=== PATIENT | female | born 1985 | race Caucasian/White ===

== ENCOUNTER 2022-01-26 21:10 | Emergency (ER) | payer BC, MEDICAID, SELFPAY ==
[2022-01-26 21:21] VITALS: BP 135/73; PULSE 74; RESP 18; TEMP 36.6; O2SAT 99; BMI 45.7
[2022-01-26 21:28] VITALS: BP 135/89; PULSE 67; RESP 18; O2SAT 99
--- NOTE | 2022-01-26 21:36 | CRLHL7_ITS ---
For Patients: As a result of the Cures Act, medical imaging exams and procedure reports are released immediately into your electronic medical record. You may view this report before your referring provider. If you have questions, please contact your health care provider. INDICATION: Chest pain. TECHNIQUE: Chest 1 views. COMPARISON: None. FINDINGS: Cardiovascular and mediastinum: Cardiomediastinal silhouette is within normal limits. Lungs and pleural spaces: Lungs are clear. No sign of pleural effusion. No pneumothorax. Bones and soft tissues: No significant findings. IMPRESSION: No acute cardiopulmonary process identified. Dictated by Kamryn Franco MD @ 01/26/2022 10:41:34 PM (Electronically Signed)
[2022-01-26] MEDS: GI COCKTAIL (VISC LIDO/ANTACID) 30 ML PO (21:42)
--- NOTE | 2022-01-26 21:46 | ED_ITS ---
HPI - General Adult General Date Seen: 01/26/22 Chief complaint: Chest Pain Stated complaint: chest pain Time Seen by Provider: 01/26/22 21:24 Source: patient Mode of arrival: ambulatory Limitations: no limitations History of Present Illness HPI narrative: Patient is a 36-year-old female who comes in with pain on the left side of her chest. 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 She does acknowledge this is an anxiety provoking event for her as she has autistic sons. She has never had any exertional chest pain. She does have a history of acid reflux but does not take medication regularly for this. The pain began she was convinced that it was acid related but it did not resolve by taking water like it normally would. The pain seemed to radiate into her back into her left shoulder which made her concerned that could be heart related. There is no family history of premature coronary disease. There is hypertension in her family but she has never been told she has high blood pressure. She has never been told she has high cholesterol. There was no associated diaphoresis or dyspnea. She does not take any medications regularly. Related Data Home Medications Medication Instructions Recorded Confirmed No Known Home Medications 01/26/22 01/26/22 Allergies Allergy/AdvReac Type Severity Reaction Status Date / Time No Known Drug Allergies Allergy Verified 01/26/22 21:25 Review of Systems Status of ROS: Reports: 10 or more systems reviewed and unremarkable except as noted in History and below [facility] Medical History (Updated 01/26/22 @ 22:41 by Koko Mann MD) 6th nerve palsy Acute vaginitis Bipolar disorder, current episode depressed, mild KRISTEN I (cervical intraepithelial neoplasia I) Depressive disorder Dyslexia Generalized anxiety disorder Morbid obesity Pain in left knee Tension-type headache, unspecified, intractable UTI (urinary tract infection) Surgical History (Updated 01/26/22 @ 21:37 by Vishal Rollins RN) H/O laparoscopy History of tympanostomy History of wisdom tooth extraction Hx of breast reduction, elective Social History Smoking Status: Former smoker Do you use any of these nicotine containing products: None Second hand tobacco smoke exposure: No How often do you have a drink containing alcohol: 2-4 times a month How many standard drinks containing alcohol do you have on a typical day: 1 or 2 How often do you have six or more drinks on one occasion: Never AUDIT-C Alcohol total score: 2 Non-prescribed substance use: denies use service: No Exam Narrative: Exam Narrative: Vitals noted. HEENT: Conjunctiva clear. Tympanic membranes are pearly white bilaterally. Posterior pharynx is clear without erythema or exudate. Neck is supple without adenopathy, thyromegaly, carotid bruit. Lungs: Clear to auscultation in all patel. No wheezes, rales, rhonchi. Heart: Regular rate and rhythm without murmur. Abdomen: Soft and nontender. No guarding, rigidity, rebound. Bowel sounds are normal. No palpable masses. Extremities: No cyanosis or edema. Good distal pulses. Skin: No abnormalities noted of the exposed skin. Neurologic: Awake, alert, fully oriented. Neurologic exam is nonfocal. Const: Vital Signs, click to edit/add: Vital Signs - 24 hr 01/26/22 21:21 01/26/22 21:28 01/26/22 22:00 Temperature 97.9 F Pulse Rate [Right Pulse Oximeter] 74 67 75 Respiratory Rate 18 18 19 Blood Pressure [Ri ght Upper Arm] 135/73 135/89 111/68 Pulse Oximetry 99 99 97 Oxygen Delivery Me thod Room Air Room Air Room Air Course Course Hospital Course: Patient seen and examined. EKG shows normal sinus rhythm with a rate of 70. No acute ST or T-wave changes are noted. Chest x-ray and labs are ordered. Patient is given a GI cocktail. Reevaluation(s) Reevaluation #1: Her symptoms improved significantly with a GI cocktail. Her chest x-ray and lab work was all unremarkable. She is reassured. Vital Signs Vital signs: Initial Vital Signs Temperature 97.9 F 01/26/22 21:21 Temperature Source Temporal Artery Scan 01/26/22 21:21 Pulse Rate 74 01/26/22 21:21 Pulse Rhythm 01/26/22 21:21 Respiratory Rate 18 01/26/22 21:21 Blood Pressure 135/73 01/26/22 21:21 Blood Pressure Mean 93 01/26/22 21:21 Blood Pressure Position Sitting 01/26/22 21:21 Pulse Oximetry 99 01/26/22 21:21 Oxygen Delivery Method 01/26/22 21:21 Vital Signs Temperature 97.9 F 01/26/22 21:21 Pulse Rate 74 01/26/22 21:21 Respiratory Rate 18 01/26/22 21:21 Blood Pressure 135/73 01/26/22 21:21 Pulse Oximetry 99 01/26/22 21:21 Oxygen Delivery Method 01/26/22 21:21 Temperature 97.9 F 01/26/22 21:21 Pulse Rate 75 01/26/22 22:00 Respiratory Rate 19 01/26/22 22:00 Blood Pressure 111/68 01/26/22 22:00 Pulse Oximetry 97 01/26/22 22:00 Oxygen Delivery Method 01/26/22 22:00 Medical Decision Making Lab Data Labs: Lab Results 01/26/22 01/26/22 Range/Units 21:51 21:51 D-Dimer Quant (PE/DVT) 0.27 (0.00-0.50) ug/ml Sodium 135 (135-149) mmol/L Potassium 3.9 (3.6-5.1) mmol/L Chloride 101 (96-114) mmol/L Carbon Dioxide 27 (20-32) mmol/L BUN 12 (5-24) mg/dL Creatinine 0.6 (0.5-1.5) mg/dL Estimated Creat Clear 104.49 Estimated GFR 121 ml/min Glucose 144 H (60-115) mg/dL Calcium 9.1 (8.4-10.6) mg/dL Troponin I < 0.01 L (0.01-0.04) ng/mL Lipase 146 (23-300) U/L Discharge Plan Discharge Clinical Impression: Chest pain due to GERD Patient Disposition: Home, Self-Care Condition: Improved Additional Instructions: Use Tylenol for pain. Use OTC omeprazole or Pepcid for acid reflux. If pain persists please follow-up with your PCP. Your labs, chest x-ray, EKG were all normal. Prescriptions: No Action No Known Home Medications Stand Alone Forms: [employer] Info Instructions
--- OUTSIDE RECORDS SUMMARY | 2022-01-26 21:54 | XMS_ITS | Clinical Summary ---
:1985 Author Organization [facility] Address [address] [place] [id number] Care Team Providers Name Role Phone Sofiya Higgins MD Primary Care Provider Lou Hare MD Unavailable Jean Meade MD Unavailable Allergies No known active allergies Medications Medication Sig Dispensed Refills Start Date End Date Status acetaminophen Take 650 mg by 0 A ctive (TYLENOL) 325 MG mouth tablet levonorgestrel 1 Device by 0 12/24/2015 Ac tive (MIRENA) 20 MCG/24HR Intrauterine route IUD Active Problems No known active problems Social History Tobacco Use Types Packs/Day Years Used Date Smoking Tobacco: Former Smokeless Tobacco: Never Sex Assigned at Date Recorded Not on file Last Filed Vital Signs Vital Sign Reading Time Taken Comments Blood Pressure 108/61 06/03/2019 5:45 PM [facility] Pulse 63 06/03/2019 5:00 PM [facility] Temperature 36.9 ??C (98.4 ??F) 06/03/2019 2:48 PM [facility] Respiratory Rate 16 06/03/2019 2:48 PM [facility] Oxygen Saturation 99% 06/03/2019 6:00 PM [facility] Inhaled Oxygen Concentration - - Weight - - Height - - Body Mass Index - - Plan of Treatment Health Maintenance Due Date Last Done Comments ADVANCE CARE PLANNING 1985 ANNUAL REVIEW OF HM ORDERS 1985 YEARLY PREVENTIVE VISIT 1985 COVID-19 Vaccine (#1) 03/06/1988 DTAP/TDAP/TD IMMUNIZATION 08/18/1999 08/17/1999, 12/22/1993 (3 - Tdap) HIV SCREENING 09/03/2002 HEPATITIS C SCREENING 09/03/2005 PAP 09/03/2008 PHQ-2 (once per calendar 04/11/2021 year) INFLUENZA VACCINE (#1) 2021 04/12/2019, 12/24/2017, 01/03/2016, Additional history exists HEPATITIS B IMMUNIZATION Completed 02/11/1996, 04/18/1995, 10/20/1994 IPV IMMUNIZATION Aged Out No longer eligi ble based on patient 's age to complete this topic MENINGITIS IMMUNIZATION Aged Out No longe r eligible based on patient 's age to complete this topic Pneumococcal Vaccine: Aged Out No longer eligible Pediatrics (0 to 5 Years) based on patient's age and At-Risk Patients (6 to to co mplete this topic 64 Years) Care Teams Claims Adjudicator Relationship Specialty Start Date End Date Sofiya Higgins MD PCP - General Family Practice 05/29/19 [facility] [address] [place], [place] [id number] Lou Hare MD Referring Physician Osteopathy 06/11/19 [facility] [address] [place], [place] [id number] Jean Meade MD MD Ophthalmology 06/11/19
--- OUTSIDE RECORDS SUMMARY | 2022-01-26 21:55 | XMS_ITS | Encounter Summary ---
:1985 Author Organization [place] Address [address] [place] [address] Care Team Providers Name Role Phone Sofiya Higgins MD Primary Care Provider Reason for Visit Reason Comments Headache Encounter Details Date Type Department Care Team Description 05/29/2019 Emergency [facility] Rocky Cavazos, Tension headache Emergency Dept [address] [facility] [place], [place] [address] [place] [address] [place] [address] [phone] (Wo rk) Social History Tobacco Use Types Packs/Day Years Used Date Smoking Tobacco: Never Assessed Sex Assigned at Date Recorded Not on file documented as of this encounter Last Filed Vital Signs Vital Sign Reading Time Taken Comments Blood Pressure 125/65 05/29/2019 8:05 PM AIR CARGO SPECIALIST Pulse 63 05/29/2019 8:05 PM AIR CARGO SPECIALIST Temperature 36.5 ??C (97.7 ??F) 05/29/2019 5:59 PM AIR CARGO SPECIALIST Respiratory Rate 16 05/29/2019 9:14 PM AIR CARGO SPECIALIST Oxygen Saturation 98% 05/29/2019 8:05 PM AIR CARGO SPECIALIST Inhaled Oxygen Concentration - - Weight - - Height - - Body Mass Index - - documented in this encounter Discharge Instructions Discharge InstructionsRocky Cavazos MD - 05/29/2019 9:03 PM AIR CARGO SPECIALIST Discharge Instructions Headache You were seen today for a headache. Headaches may be caused by many different things such as muscle tension, sinus inflammation, anxiety and stress, having too little sleep, too much alcohol, some medical conditions or injury. You may have a migraine, which is caused by changes in the blood vessels inyour head. At this time your provider does not find that your headache is a sign of anything dangerous or life-threatening. However, sometimes the signs of serious illness do not show up right away. Generally, every Emergency Department visit should have a follow-up clinic visit with either a primary or a specialty clinic/provider. Please follow-up as instructed by your emergency provider today. Return to the Emergency Department if: You get a new fever of 100.4??F or higher. Your headache gets much worse. You get a stiff neck with your headache. You get a new headache that is significantly different or worse than headaches you have had before. You are vomiting (throwing up) and cannot keep food or water down. You have blurry or double vision or other problems with your eyes. You have a new weakness on one side of your body. You have difficulty with balance which is new. You or your family thinks you are confused. You have a seizure. What can I do to help myself? Pain medications - You may take a pain medication such as Tylenol?? (acetaminophen), Advil??, Motrin?? (ibuprofen) or Aleve?? (naproxen). Take a pain reliever as soon as you notice symptoms. Starting medications as soon as you start to have symptoms may lessen the amount of pain you have. Relaxing in a quiet, dark room may help. Get enough sleep and eat meals regularly. You may need to watch for certain foods or other things which may trigger your headaches. Keeping a journal of your headaches and possible triggers may help you and your primary provider to identify things which you should avoid which may be causing your headaches. If you were given a prescription for medicine here today, be sure to read all of the information (including the package insert) that comes with your prescription. This will include important information about the medicine, its side effects, and any warnings that you need to know about. The pharmacist who fills the prescription can provide more information and answer questions you may have about the medicine. If you have questions or concerns that the pharmacist cannot address, please call or return to the Emergency Department. Remember that you can always come back to the Emergency Department if you are not able to see your regular provider in the amount of time listed above, if you get any new symptoms, or if there is anything that worries you. CARGO SPECIALIST documented in this encounter Medications at Time of Discharge Medication Sig Dispensed Refills Start Date End Date levonorgestrel (MIRENA) 1 Device by 0 12/24/2015 20 MCG/24HR IUD Intrauterine route cyclobenzaprine 10 MG PO Take 1 tablet (10 mg) 20 tablet 0 05/29/2019 06/13/2019 tablet by mouth 3 times daily as needed for muscle spasms documented as of this encounter ED Notes Mamta Rust RN - 05/29/2019 6:00 PM CST Pt states, Yestersday at work I started having a really bad headache that was in the back of my head, and I slept okay last night after taking some melatonin and now today im super sensitive to lightsand the pain is getting so throbbing and hurting and now I am nauseated. VSS and ABC's intact. CARGO SPECIALIST Rocky Cavazos MD - 05/29/2019 5:54 PM CST History Chief Complaint: Headache HPI Nell Mcdonnell is a 33 year old female with a history of anxiety and diagnosis of PTSD who presents to the emergency department for evaluation of headache. The patient reports that yesterday morningshe woke up with a posterior headache that radiates to the sides of her head. She was able to go to work, but left early. She reports trouble driving home due to bright lights and loud noises. She was able to sleep last night, but woke up with the headache and neck pain today. Her neck pain is improved by massaging the area. She also reports some nausea, anxiety and a tingling sensation in her thighs. The patient last took 2 tablets of Advil at 1530 today. The patient denies any vomiting or changes in appetite. She also denies any history of migraines or frequent headaches. She has not seen a chiropractor recently. Allergies: No Known Drug Allergies Medications: Mirena Past Medical History: Cervical intraepithelial neoplasia Depression Bipolar Anxiety PTSD Past Surgical History: Tympanostomy [place] teeth extraction Abdomen laparoscopy diagnostic Breast reduction Family History: No past pertinent family history. Social History: The patient was accompanied to the ED by her . Smoking Status: Former Smokeless Tobacco: Never Alcohol Use: Not currently Drug Use: Not on file Review of Systems Constitutional: Negative for appetite change. Eyes: Positive for photophobia. Gastrointestinal: Positive for nausea. Negative for vomiting. Musculoskeletal: Positive for neck pain. Neurological: Positive for headaches. All other systems reviewed and are negative. Physical Exam Vitals: Patient Vitals for the past 24 hrs: BP Temp Temp src Pulse Heart Rate Resp SpO2 05/29/192004 125/65 -- -- 63 -- 18 98 % 05/29/19 1800 (!) 158/79 -- -- 74 -- -- 98 % 05/29/19 1759 (!) 158/79 97.7 ??F (36.5 ??C) Oral -- 70 16 96 % Physical Exam Nursing note and vitals reviewed. Constitutional: Cooperative. HENT: Mouth/Throat: Moist mucous membranes. Eyes: EOMI, nonicteric sclera Cardiovascular: Normal rate, regular rhythm, no murmurs, rubs, or gallops Pulmonary/Chest: Effort normal and breath sounds normal. No respiratory distress. No wheezes. No rales. Abdominal: Soft. Nontender, nondistended, no guarding or rigidity. BS present. Musculoskeletal: Normal range of motion. Bilateral paracervical muscle tenderness. Neurological: Alert. Moves all extremities spontaneously. Skin: Skin is warm and dry. No rash noted. Psychiatric: Normal mood and affect. Emergency Department Course Imaging: Radiographic findings were communicated with the patient who voiced understanding of the findings. CT Head WO Contrast 1. No acute intracranial process. 2. Mild to moderate opacification paranasal sinuses including sphenoid sinus may be on an inflammatory basis. Imaging independently reviewed and agree with radiologist interpretation. CTA Head Neck W Contrast HEAD CTA: 1. Nothing for thrombolic occlusion or high-grade stenosis intracranially. Nothing for dissection orhigh flow vascular malformation. NECK CTA: 1. No hemodynamically significant stenosis in the neck or evidence for dissection. Please see above for details. Imaging independently reviewed and agree with radiologist interpretation. Laboratory: HCG Qualitative Blood: Negative Interventions: 1919 Valium 5 mg IV 1919 Toradol 15 mg IV Emergency Department Course: Past medical records, nursing notes, and vitals reviewed. 1849 I performed an exam of the patient as documented above. IV was inserted and blood was drawn for laboratory testing, results above. The patient was sent for a head CT and head/neck CTA while in the emergency department, results above. 2057 I rechecked the patient and discussed the results of her workup thus far. Findings and plan explained to the Patient. Patient discharged home with instructions regarding supportive care, medications, and reasons to return. The importance of close follow-up was reviewed. The patient was prescribed cyclobenzaprine. I personally reviewed the laboratory results with the Patient and answered all related questions prior to discharge. Impression & Plan Medical Decision Making: Patient presents with chief complaint headache. She does not have a history of headaches in the past. Headache is mostly located in the posterior neck and head and along the temples. This distribution of headache is most consistent with a tension headache. However, patient does note that this headacheseems to be the worst 1 she has ever had. Chart review suggests no prior head imaging therefore patient did go for CT/CTA of her head and neck which fortunately returns negative for acute etiology. Herneurologic exam here is normal. After treatment with Toradol and Valium, her symptoms are completelyresolved and she reports feeling better. Recommended primary care follow-up and consideration of physical therapy. Flexeril prescribed for pain relief in addition to ongoing Motrin use at home. She is discharged in stable condition. All questions answered and she is in agreement with the plan. Diagnosis: ICD-10-CM 1. Tension headache G44.209 Disposition: discharged to home Discharge Medications: New Prescriptions CYCLOBENZAPRINE 10 MG PO TABLET Take 1 tablet (10 mg) by mouth 3 times daily as needed for muscle spasms ITrevor, am serving as a scribe on 05/29/2019 at 6:00 PM to personally document services performed by Rocky Cavazos MD based on my observations and the provider's statements to me. Trevor Ordaz 05/29/2019 [facility] EMERGENCY DEPARTMENT Rocky Cavazos MD 05/30/19 0128 CARGO SPECIALIST documented in this encounter Plan of Treatment Not on filedocumented as of this encounter Procedures Procedure Name Priority Date/Time Associated Comments Diagnosis CTA HEAD NECK W STAT 05/29/2019 7:41 PM Result s for this CONTRAST AIR CARGO SPECIALIST procedure are i n the results section. CT HEAD W/O CONTRAST STAT 05/29/2019 7:39 PM R esults for this AIR CARGO SPECIALIST procedure are i n the results section. HCG QUALITATIVE STAT 05/29/2019 6:06 PM Result s for this AIR CARGO SPECIALIST procedure are i n the results section. documented in this encounter Results CTA Head Neck with Contrast (05/29/2019 7:41 PM AIR CARGO SPECIALIST) Anatomical Region Laterality Modality Head, SUBRAD CT NEURO, SUBRAD CT NEURO, UMP CT NEURO, Computed Tomography RAD CT Specimen (Source) Anatomical Collection Method Collection Time Re ceived Time Location / / Volume Laterality 05/29/2019 7:22 PM AIR CARGO SPECIALIST Impressions 05/29/2019 8:18 PM AIR CARGO SPECIALIST IMPRESSION: HEAD CTA: 1. ??Nothing for thrombolic occlusion or high-grade stenosis intracranially. Nothing for dissection or high flow vascular malformation. NECK CTA: 1. ??No hemodynamically significant sten osis in the neck or evidence for dissection. Please see above for details. Narrative 05/29/2019 8:18 PM AIR CARGO SPECIALIST EXAM: CTA HEAD NECK WITH CONTRAST LOCATION: [facility] DATE/TIME: 05/29/2019 7:22 PM INDICATION: Severe posterior headache an d posterior neck pain. COMPARISON: None. CONTRAST: 70 mL Isovue-370. TECHNIQUE: Head and neck CT angiogram IV contrast. Noncontrast head CT followed by axial helical CT images of the head and neck vessels obtained during the arterial phase of intravenous contrast administration. Axial 2D reconstructed images and multiplanar 3D MIP reconstructed images of the head and neck vessels were performed by the technologist. Dose reduction techniques were used. All stenosis measurements made according to NASCET criteria unless otherwise specified. FINDINGS: ANTERIOR CIRCULATION: No stenosis/occlus ion, aneurysm, or high flow vascular malformation. Standard [place] of Prakash anatomy. No evidence for thrombolic occlusion with symmetric peripheral branch arborization MCA and ARLEN vascular territory. POSTERIOR CIRCULATION: No stenosis/occlu ry, aneurysm, or high flow vascular malformation. Balanced vertebral arteries supply a normal basilar artery. Symmetric branch arborization of the MILLWRIGHT INSTRUCTOR vascular territory. DURAL VENOUS SINUSES: Expected enhanceme nt of the major dural venous sinuses. NECK CTA: RIGHT CAROTID: No measurable stenosis or dissection. LEFT CAROTID: No measurable stenosis or dissection. VERTEBRAL ARTERIES: No focal stenosis or dissection. Balanced vertebral arteries. Vertebral basilar tortuosity without ectasia at the skull base. AORTIC ARCH: Classic aortic arch anatomy with no significant stenosis at the origin of the great vessels. NONVASCULAR STRUCTURES: Presumed residua l thymic tissue at the superior mediastinal level. Lung apices are otherwise clear without discrete pulmonary nodule or focal infiltrate. No effusions at the uppe r hemithorax level. No mass or adenopath y in the neck. Degenerative changes cervical spin e with reversal of the expected cervical lordosis. Gas density likely related to contrast injection dorsal to the odontoid process in the coronal venous plexus incidentally noted series 9 image 45. Procedure Note Dewayne Amos MD - 05/29/2019For matting of this note might be different from the original. EXAM: CTA HEAD NECK WITH CONTRAST LOCATION: [facility] DATE/TIME: 05/29/2019 7:22 PM INDICATION: Severe posterior headache an d posterior neck pain. COMPARISON: None. CONTRAST: 70 mL Isovue-370. TECHNIQUE: Head and neck CT angiogram wi th IV contrast. Noncontrast head CT followed by axial helical CT images of the head and neck vessels obtained during the arterial phase of intravenous contrast administration. Axial 2D reconstructed images and multiplanar 3D MIP reconstructed images of the head and neck vessels were performed by the technologist. Dose reduction techniques were used. All stenosis measurements made according to NASCET criteria unless otherwise specified. FINDINGS: ANTERIOR CIRCULATION: No stenosis/occlus ion, aneurysm, or high flow vascular malformation. Standard [place] of Prakash anatomy. No evidence for thrombolic occlusion with symmetric peripheral branch arborization MCA and ARLEN vascular territory. POSTERIOR CIRCULATION: No stenosis/occlu ry, aneurysm, or high flow vascular malformation. Balanced vertebral arteries supply a normal basilar artery. Symmetric branch arborization of the MILLWRIGHT INSTRUCTOR vascular territory. DURAL VENOUS SINUSES: Expected enhanceme nt of the major dural venous sinuses. NECK CTA: RIGHT CAROTID: No measurable stenosis or dissection. LEFT CAROTID: No measurable stenosis or dissection. VERTEBRAL ARTERIES: No focal stenosis or dissection. Balanced vertebral arteries. Vertebral basilar tortuosity without ectasia at the skull base. AORTIC ARCH: Classic aortic arch anatomy with no significant stenosis at the origin of the great vessels. NONVASCULAR STRUCTURES: Presumed residua l thymic tissue at the superior mediastinal level. Lung apices are otherwise clear without discrete pulmonary nodule or focal infiltrate. No effusions at the upper hemithorax level. No mass or adenopathy in the neck. Degenerative changes cervical spin e with reversal of the expected cervical lordosis. Gas density likely related to contrast injection dorsal to the odontoid process in the coronal venous plexus incidentally noted series 9 image 45. IMPRESSION: HEAD CTA: 1. Nothing for thrombolic occlusion or h igh-grade stenosis intracranially. Nothing for dissection or high flow vascular malformation. NECK CTA: 1. No hemodynamically significant stenos is in the neck or evidence for dissection. Please see above for details. Rocky Cavazos MD IMG CT ORDERABLES Head CT w/o contrast (05/29/2019 7:39 PM AIR CARGO SPECIALIST) Anatomical Region Laterality Modality Head, SUBRAD CT NEURO, SUBRAD CT NEURO, UMP CT NEURO, Computed Tomography RAD CT Specimen (Source) Anatomical Collection Method Collection Time Re ceived Time Location / / Volume Laterality 05/29/2019 7:22 PM AIR CARGO SPECIALIST Impressions 05/29/2019 7:57 PM AIR CARGO SPECIALIST IMPRESSION: 1. ??No acute intracranial process. 2. ??Mild to moderate opacification para nasal sinuses including sphenoid sinus may be on an inflammatory basis. Narrative 05/29/2019 7:57 PM AIR CARGO SPECIALIST EXAM: CT HEAD W/O CONTRAST LOCATION: [facility] DATE/TIME: 05/29/2019 7:22 PM INDICATION: Severe posterior headache, p osterior neck pain COMPARISON: None. TECHNIQUE: Routine without IV contrast. Multiplanar reformats. Dose reduction techniques were used. FINDINGS: INTRACRANIAL CONTENTS: No intracranial h emorrhage, extraaxial collection, or mass effect. ??No CT evidence of acute infarct. Normal parenchymal attenuation. Normal ventricles and sulci. Satisfactory position cerebellar tonsils . Sella appears within normal limits. VISUALIZED ORBITS/SINUSES/MASTOIDS: No i ntraorbital abnormality. Mild to moderate mucosal thickening scattered about the paranasal sinuses. No middle ear or mastoid effusion. BONES/SOFT TISSUES: No fracture of the c alvarium or skull base. Procedure Note Dewayne Amos MD - 05/29/2019For matting of this note might be different from the original. EXAM: CT HEAD W/O CONTRAST LOCATION: [facility] DATE/TIME: 05/29/2019 7:22 PM INDICATION: Severe posterior headache, p osterior neck pain COMPARISON: None. TECHNIQUE: Routine without IV contrast. Multiplanar reformats. Dose reduction techniques were used. FINDINGS: INTRACRANIAL CONTENTS: No intracranial h emorrhage, extraaxial collection, or mass effect. No CT evidence of acute infarct. Normal parenchymal attenuation. Normal ventricles and sulci. Satisfactory position cerebellar tonsils . Sella appears within normal limits. VISUALIZED ORBITS/SINUSES/MASTOIDS: No i ntraorbital abnormality. Mild to moderate mucosal thickening scattered about the paranasal sinuses. No middle ear or mastoid effusion. BONES/SOFT TISSUES: No fracture of the c alvarium or skull base. IMPRESSION: 1. No acute intracranial process. 2. Mild to moderate opacification parana bucky sinuses including sphenoid sinus may be on an inflammatory basis. Rocky Cavazos MD IMG CT ORDERABLES HCG QUALitative (blood) (05/29/2019 6:06 PM AIR CARGO SPECIALIST) [facility] Method Time Signature HCG Qualitative Negative NEG^Negati 05/29/2019 [place] Serum ve 6:38 PM [facility] Comment: This test is for screening purposes. ??R esults should be interpreted along with the clinical picture. ??Confirmation te sting is available if warranted by ordering [id number], HCG Quantitative Pregna ncy. Specimen Anatomical Collection Method Collection Time Receive d Time (Source) Location / / Volume Laterality Blood specimen 05/29/2019 6:06 PM 020 6:14 (specimen) AIR CARGO SPECIALIST PM AIR CARGO SPECIALIST Rocky Cavazos MD LAB - BLOOD ORDERABLES Performing Organization Address City/State/ZIP Code Phon e Number M [facility] [address] [address] [facility] [address] [phone] documented in this encounter Visit Diagnoses Diagnosis Tension headache documented in this encounter Administered Medications Inactive Administered Medications - up to 3 most recent administrations Medication Order MAR Action Action Date Dose Rate Site diazepam (VALIUM) injection 5 mg Given 05/29/2019 7:20 PM AIR CARGO SPECIALIST 5 mg 5 mg, Intravenous, Administer over 1-4 Minutes, ONCE, On Tue05/29/19 at 1909, For 1 dose, This drug may cause significant respiratory depression. Monitor respiratory status and vital signs carefully for 1 hour after each dose. iopamidol (ISOVUE-370) solution 70 mL Given 05/29/2019 7:24 PM AIR CARGO SPECIALIST 70 mLs 70 mL, Intravenous, ONCE, On 05/29/19 at 1923, For 1 dose ketorolac (TORADOL) injection 15 mg Given 05/29/2019 7:20 PM AIR CARGO SPECIALIST 15 mg 15 mg, Intravenous, ONCE, On Tue05/29/19 at 1909, For 1 dose, Can cause pain on injection. If ordered intravenously (IV) : administer through a running maintenance fluid over 1 minute followed by a flush. If patient complains of pain on injection, may dilute 15-30 mg in 5 mL and push over 1 to 2 minutes. sodium chloride (PF) 0.9% PF flush 80 mL Given 05/29/2019 7:24 PM AIR CARGO SPECIALIST 80 mLs 80 mL, Intravenous, ONCE, On Tue05/29/19 at 1923, For 1 dose documented in this encounter Active and Recently Administered Medications Times are shown in AIR CARGO SPECIALIST. Scheduled Medication Order 05/27/2019 05/28/2019 05/29/2019 diazepam (VALIUM) injection 5 mg (COMPLETED) 1919 (Given - Provider: Cynthia Roblero RN) 5 mg, Intravenous, Administer over 1-4 M inutes, ONCE, Tue05/29/19 at 1909, For 1 dose, This drug may cause significant respiratory depression. Monitor respiratory status and vital signs carefully for 1 hour after each dose. iopamidol (ISOVUE-370) solution 70 mL (COMPLETED) 1923 (Given - Provider: Umer Loza RT) 70 mL, Intravenous, ONCE, e 05/29/19 at 1923, For 1 dose ketorolac (TORADOL) injection 15 mg (COMPLETED) 1919 (Given - Provider: Cynthia Roblero RN) 15 mg, Intravenous, ONCE, 05/29/19 at 1909, For 1 dose, Can cause pain on injection. If ordered intravenously (IV) : administer through a running maintenance fluid over 1 minute followed by a flush. If patient complains of pain on injectio n, may dilute 15-30 mg in 5 mL and push over 1 to 2 minutes. sodium chloride (PF) 0.9% PF flush 80 mL (COMPLETED) 1923 (Given - Provider: RT Lauren) 80 mL, Intravenous, ONCE, 05/29/19 at 1924, For 1 dose documented in this encounter Care Teams Coat Padder Relationship Specialty Start Date End Date LashawntSofiya MD PCP - General Family Practice 05/29/[address] [address] documented as of this encounter
--- OUTSIDE RECORDS SUMMARY | 2022-01-26 21:55 | XMS_ITS | Encounter Summary ---
:1985 Author Organization [place] Address [address] [place] [address]. [place] [address] Care Team Providers Name Role Phone Sofiya Higgins MD Primary Care Provider Lou Hare MD Unavailable Jean Meade MD Unavailable Encounter Details Date Type Department Care Team Description 07/26/[address] [facility] Eye Cliff Meade MD Sixth nerve palsy, Clinic - [address] right (Primary Dx) Hernesto Quiñones [place], [place] Building [address] [place] [address] [facility] [address] [place] [address] Social History Tobacco Use Types Packs/Day Years Used Date Smoking Tobacco: Former Smokeless Tobacco: Never Sex Assigned at Date Recorded Not on file COVID-19 Exposure Response Date Recorded In the last month, have you been in contact with No / Unsure 07/16/2019 1:06 PM CDT someone who was confirmed or suspected to have Coronavirus / COVID-19? documented as of this encounter Plan of Treatment Not on filedocumented as of this encounter Visit Diagnoses Diagnosis Sixth nerve palsy, right - Primary documented in this encounter Care Teams Talent Advisor Relationship Specialty Start Date End Date Sofiya Higgins MD PCP - General Family Practice 05/29/[address] [address] Lou Hare MD Referring Physician Osteopathy 06/11/19 [place] [address] Jean Meade MD MD Ophthalmology 06/11/19 documented as of this encounter
--- OUTSIDE RECORDS SUMMARY | 2022-01-26 21:55 | XMS_ITS | Clinical Summary ---
:1985 Author Organization [facility] [place] [address] Care Team Providers Name Role Phone Sofiya Higgins MD Primary Care Provider Allergies No known active allergies Medications Hospital, Clinic, or Other Ordered Dose Route Frequency Start Date End Date Status Facility Administered Medication levonorgestrel intrauterine 1 Device IU Q 5 YEARS 12/24/2015 Active device 1 Device (MIRENA)Indications: Encounter for IUD insertion Active Problems Problem Noted Date Urgency of urination 04/16/2020 Acute vaginitis 04/16/2020 Urinary tract infection, site not specified 01/05/2020 Other specified noninflammatory disorders of vagina Bipolar disorder, current episode depressed, mild 08/09 Generalized anxiety disorder 08/21/2019 Tension-type headache, unspecified, intractable 2019 Sprain of medial collateral ligament of left knee 05/12 Pain in left knee 04/11/2019 Sprain of unspecified ligament of left ankle, initial encounter 01/13/2019 Supervision of other normal , antepartum 09/10 Insulin controlled gestational diabetes mellitus (GDM) in third trimester 09/16/2015 Rh negative status during in second trimeste r, antepartum 06/17/2015 Encounter for supervision of other normal , f irst trimester 05/07/2015 Overview: IDDM - gestational. BPP's Excessive weight gain 06/06/2014 Morbid obesity 03/21/2012 Active labor 07/27/2011 RLQ abdominal pain 01/22/2009 Overview: Laparoscopic evaluation: ovarian cyst re moved 01/2009. 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 Fe supplement started 09/2006 Likely due to menstruation. KRISTEN I (cervical intraepithelial neoplasia I) Resolved Problems Problem Noted Date Resolved Date Bipolar disorder, unspecified 02/15/2011 Overview: Patient follows with psychiatry. diagnosed 2005, patient feels better wit h lithium. Anxiety state, unspecified 02/15/2011 Immunizations Name Administration Dates Next Due DTaP 12/22/1993 Hepatitis B (Peds) 02/11/1996, 04/18/1995, 10/20/1994 Human Papilloma Virus Vaccine 04/29/2009, 12/26/2008, 2008 Influenza Intradermal PF 18-64 yrs 03/21/2012 Influenza, IIV3 (Age 6-35 mos) 04/29/2009 Influenza, IIV3 (Age >=3 years) 01/30/2014, 01/28/2006 Influenza, IIV4 04/12/2019, 12/24/2017, 01/03/2016 Influenza,CCIIV4 PRESERV FREE 12/19/2019, 01/19/2017 MMR 11/15/2015, 08/17/1999 Td (Age >=7 Years) 04/11/2004, 08/17/1999 Tdap 09/16/2015, 11/18/2009 Family History Medical History Relation Name Comments Good Health Brother 2 Cancer-pancreatic Father Endometriosis Maternal Grandmother Good Health Mother Unknown Other No known family history of colon/uterine/ov fabricio/cervical cancer Diabetes Paternal Grandfather Diabetes Paternal Grandmother Good Health Sister 2 Relation Name Status Comments Brother 1 Alive Brother 2 Father Alive Maternal Grandmother Mother Alive Other Paternal Grandfather Paternal Grandmother Sister 1 Alive Sister 2 Social History Tobacco Use Types Packs/Day Years Used Date Former Smoker Cigarettes 2 Smokeless Tobacco: Never Used Tobacco Cessation: Counseling Given: Yes Comments: one cigarette qod x 2 years, Alcohol Use Standard Drinks/Week Comments Yes 1 (1 standard drink = 0.6 oz pure alcoho l) Alcohol Habits Answer Date Recorded How often do you have a drink containing alcohol? Monthly or less 04/12/2019 How many drinks containing alcohol do you have on a 1 or 2 04/12/2019 typical day when you are drinking? How often do you have six or more drinks on one Never 04/12/2019 occasion? Comment: Not asked Sex Assigned at Date Recorded Not on file Obstetrics History Para Term AB IAB SAB Ectopic Multiple Living Live Births 5 2 2 0 3 0 0 0 0 2 2 Date Outcome GA Total Labor/2nd/3rd Weight Sex Delivery Anes PTL Melva A 1 A5 Name Clin Labor 07/24 Term 39w 2.63 kg F Vag Delma 9 9 GENZL /2011 1d (5 lb ng ER,BG 12.8 oz) Delivery Location: [facility] 2014 AB 6w0d 2014 AB 6w0d 2015 AB 6w0d 11/14/2015 Term 39w1d 3.66 kg (8 M Vag Epidural N Living 7 8 GENZLER,BB lb 1 oz) NATHANIEL Sierra Complications: None [facility]: [facility] Last Filed Vital Signs Vital Sign Reading Time Taken Comments Blood Pressure 116/60 05/20/2021 11:14 AM MIRROR FRAMER Pulse 90 05/20/2021 11:14 AM MIRROR FRAMER Temperature 36.7 ??C (98 ??F) 11/30/2015 12:00 AM CDT Respiratory Rate 12 11/30/2015 12:00 AM CDT Oxygen Saturation 99% 11/15/2015 9:00 AM CDT Inhaled Oxygen Concentration - - Weight 115.3 kg (254 lb 3.2 oz) 05/20/2021 11:14 AM MIRROR FRAMER Height 157.5 cm (5' 2) 04/12/2019 2:03 PM with shoes MIRROR FRAMER Body Mass Index 46.49 04/12/2019 2:03 PM MIRROR FRAMER Plan of Treatment Health Maintenance Due Date Last Done Comments Hepatitis C screening for age 0509/03/2005 18-79 Depression screening for age 12+ 02/05/2017 02/06/2016, 11/2015, 06/17/2015 BMI (ht and wt on same day) for 04/12/2020 04/12/2019, 12/10, age 18+ 11/11/2015, Additional history exists COVID-19 vaccine series (4 - 05/23/2021 03/28/2021, 021, Booster for Moderna series) 05/10/2020 Influenza for age 9-49 12/10/2021 12/19/2019, 04/12/2019, 12/24/2017, Additional history exists Pap test for age 21-65 10/29/2024 10/30/2019 (Verified in C are Everywhere or Patient Record), 05/07/2015, 07/18/2008 Tetanus booster 09/15/2025 09/16/2015, 11/18/2009, 04/11/2004, Additional history exists Tdap Completed 09/16/2015, 11/18/2009 Results Not on filefrom Last 3 Months Insurance Payer Benefit Plan / Subscriber ID Effective Dates Phone Addre ss Type Group [employer]UE [employer]OSS BL[employer] OF [id number] 2020-Present [address] [address] [place] [address] [facility] [id number] 2021-Present [address] [place] [address] Nell Mcdonnell Workers Comp Self [address] (Home) [place] [address] Nell Mcdonnell Personal/Family Self [address] (Home) [place] [address] Advance Directives Latest Code Status on File Code Status Date Activated Date Inactivated Comments Full Code 11/14/2015 7:21 AM 11/15/2015 5:03 PM Full Code 11/14/2015 1:30 AM 11/14/2015 7:21 AM Full Code 11/13/2015 6:48 PM 11/14/2015 1:30 AM Full Code 08/20/2015 7:39 PM 08/20/2015 11:07 PM Full Code 07/25/2011 1:45 PM 07/27/2011 3:24 PM Care Teams Healthcare Specialist Relationship Specialty Start Date End Date HettSofiya MD PCP - General Family Practice 11/10/20 [address] [place] [address]
--- OUTSIDE RECORDS SUMMARY | 2022-01-26 21:55 | XMS_ITS | Encounter Summary ---
:1985 Author Organization [facility] Address [address] [place] [address] Care Team Providers Name Role Phone Sofiya Higgins MD Primary Care Provider Lou Hare MD Unavailable Jean Meade MD Unavailable Encounter Details Date Type Department Care Team Description 07/16/2019 Travel Social History Tobacco Use Types Packs/Day Years [...] filedocumented as of this encounter Visit Diagnoses Not on filedocumented in this encounter Care Teams Oracle Architect Relationship Specialty Start Date End Date Sofiya Higgins MD PCP - General Family Practice 05/29/19 [facility] [address] [place], [place] [id number] Lou Hare MD Referring Physician Osteopathy 06/11/19 [facility] [address] [place], [place] [phone] Jean Meade MD MD Ophthalmology 06/11/19 documented as of this encounter
--- OUTSIDE RECORDS SUMMARY | 2022-01-26 21:55 | XMS_ITS | Encounter Summary ---
:1985 Author Organization [facility] Address [address] [place] [address] Care Team Providers Name Role Phone Sofiya Higgins MD Primary Care Provider Lou Hare MD Unavailable Jean Meade MD Unavailable Encounter Details Date Type Department Care Team Description 01/31/2020 Emergency [facility] Emergency Dept [address] [place] [address] Social History Tobacco Use Types Packs/Day Years Used Date Smoking Tobacco: Former Smokeless Tobacco: Never Sex Assigned at Date Recorded Not on file documented as of this encounter Medications at Time of Discharge Medication Sig Dispensed Refills Start Date End Date acetaminophen (TYLENOL) Take 650 mg by mouth 0 325 MG tablet levonorgestrel (MIRENA) 1 Device by 0 12/24/2015 20 MCG/24HR IUD Intrauterine route documented as of this encounter Plan of Treatment Not on filedocumented as of this encounter Procedures Procedure Name Priority Date/Time Associated Diagnosis Comme nts EKG 12-LEAD, STAT 01/31/2020 7:42 PM Results f or this TRACING ONLY CDT procedure are i n the results section. documented in this encounter Results EKG 12 lead (01/31/2020 7:42 PM CDT) [facility] gist Method Time Signature Interpretation ECG Click View RADIOLOGY Image link RESULTS to view waveform and result Specimen (Source) Anatomical Collection Method Collection Time Re ceived Time Location / / Volume Laterality 01/31/2020 7:42 PM CDT Luis Fernando Taylor MD ECG ORDERABLES Performing Organization Address City/State/ZIP Code Phon e Number RADIOLOGY RESULTS documented in this encounter Visit Diagnoses Not on filedocumented in this encounter Care Teams Web Machine Tender Relationship Specialty Start Date End Date Sofiya Higgins MD PCP - General Family Practice 05/29/19 [facility] [address] [place], [place] [phone] Lou Hare MD Referring Physician Osteopathy 06/11/19 [facility] [address] [place] [address] Jean Meade MD MD Ophthalmology 06/11/19 documented as of this encounter
--- OUTSIDE RECORDS SUMMARY | 2022-01-26 21:55 | XMS_ITS | Encounter Summary ---
:1985 Author Organization [facility] Address [address] [place] [address]. [place] [address] Care Team Providers Name Role Phone Sofiya Higgins MD Primary Care Provider Lou Hare MD Unavailable Jean Meade MD Unavailable Reason for Visit Reason Onset Date Comments Appointment 07/11/2019 Encounter Details Date Type Department Care Team Description 07/11/2019 Telephone [facility] Jean Meade MD Appointment - [address] [place] [address] [place] [phone] Social History Tobacco Use Types Packs/Day Years Used Date Smoking Tobacco: Former Smokeless Tobacco: Never Sex Assigned at Date Recorded Not on file documented as of this encounter Miscellaneous Notes Telephone Encounter - Ary Galindo - 07/12/2019 12:30 PM CDT Attempted to contact patient again. It again went to voicemail immediately, but now unable to leave voicemail as mailbox is full. Telephone Encounter - Ayr Galindo - 07/11/2019 2:26 PM CDT Left voicemail for patient. Left message for patient. Due to concerns of COVID- 19 we are asking to [facility]. Dr. Meade felt it would be possible to do virtual visit. Asked patient to give me a callon what would like to do. We can reschedule appt if interested. Ary Galindo on 07/11/2019 at 2:27 PM documented in this encounter Plan of Treatment Not on filedocumented as of this encounter Visit Diagnoses Not on filedocumented in this encounter Care Teams Astronomy Teacher Relationship Specialty Start Date End Date Lashawnt, Sofiya Perez MD PCP - General Family Practice 05/29/19 [facility] [address] [place], [place] [phone] Lou Hare MD Referring Physician Osteopathy 06/11/19 [facility] [address] [place], [place] [phone] Jean Meade MD MD Ophthalmology 06/11/19 documented as of this encounter
--- OUTSIDE RECORDS SUMMARY | 2022-01-26 21:55 | XMS_ITS | Encounter Summary ---
:1985 Author Organization [facility] Address [address] [place] [address] Care Team Providers Name Role Phone Sofiya Higgins MD Primary Care Provider Lou Hare MD Unavailable Jean Meade MD Unavailable Encounter Details Date Type Department Care Team Description 06/14/2019 Travel Social History Tobacco Use Types Packs/Day Years Used Date Smoking Tobacco: Former Smokeless Tobacco: Never Sex Assigned at Date Recorded Not on file documented as of this encounter Plan of Treatment Not on filedocumented as of this encounter Visit Diagnoses Not on filedocumented in this encounter Care Teams Weaver Apprentice Relationship Specialty Start Date End Date Sofiya Higgins MD PCP - General Family Practice 05/29/19 [facility] [address] [place] [address] Lou Hare MD Referring Physician Osteopathy 06/11/19 [facility] [address] [place] [address] Jean Meade MD MD Ophthalmology 06/11/19 documented as of this encounter
--- OUTSIDE RECORDS SUMMARY | 2022-01-26 21:55 | XMS_ITS | Encounter Summary ---
:1985 Author Organization [facility] Address [address] [place] [address] Care Team Providers Name Role Phone Sofiya Higgins MD Primary Care Provider Encounter Details Date Type Department Care Team Description 06/03/2019 Travel Social History Tobacco Use Types Packs/Day Years Used Date Smoking Tobacco: Never Assessed Sex Assigned at Date Recorded Not on file documented as of this encounter Plan of Treatment Not on filedocumented as of this encounter Visit Diagnoses Not on filedocumented in this encounter Care Teams Hotel Or Motel Manager Relationship Specialty Start Date End Date Sofiya Hgigins MD PCP - General Family Practice 05/29/19 [facility] [id number] [place] [address] documented as of this encounter
--- OUTSIDE RECORDS SUMMARY | 2022-01-26 21:55 | XMS_ITS | Encounter Summary ---
:1985 Author Organization [place] Address [address] [place] [address] Care Team Providers Name Role Phone Sofiya Higgins MD Primary Care Provider Reason for Visit Reason Comments Neck Pain Eye Problem Encounter Details Date Type Department Care Team Description 06/03/2019 [facility] Tj Katz MD Diplopia Emergency Dept [facility] [address] [place] [phone] [facility] [phone] [place], [place] [id number] (Wo rk) Social History Tobacco Use Types Packs/Day Years Used Date Smoking Tobacco: Never Assessed Sex Assigned at Date Recorded Not on file documented as of this encounter Last Filed Vital Signs Vital Sign Reading Time Taken Comments Blood Pressure 108/61 06/03/2019 5:45 PM REAL ESTATE SERVICES ADMINISTRATOR Pulse 63 06/03/2019 5:00 PM REAL ESTATE SERVICES ADMINISTRATOR Temperature 36.9 ??C (98.4 ??F) 06/03/2019 2:48 PM REAL ESTATE SERVICES ADMINISTRATOR Respiratory Rate 16 06/03/2019 2:48 PM REAL ESTATE SERVICES ADMINISTRATOR Oxygen Saturation 99% 06/03/2019 6:00 PM REAL ESTATE SERVICES ADMINISTRATOR Inhaled Oxygen Concentration - - Weight - - Height - - Body Mass Index - - documented in this encounter Discharge Instructions Discharge InstructionsTj Dempsey MD - 06/03/2019 5:48 PM CST Return for worsening headaches, new numbness or weakness or worsening visual disturbance. Follow-up with ophthalmology. ESTATE SERVICES ADMINISTRATOR documented in this encounter Medications at Time of Discharge Medication Sig Dispensed Refills Start Date End Date levonorgestrel (MIRENA) 1 Device by 0 12/24/2015 20 MCG/24HR IUD Intrauterine route cyclobenzaprine 10 MG PO Take 1 tablet (10 mg) 20 tablet 0 05/29/2019 06/13/2019 tablet by mouth 3 times daily as needed for muscle spasms documented as of this encounter ED Notes Mansoor Muhammad RN - 06/03/2019 6:03 PM CST Resting no change ESTATE SERVICES ADMINISTRATOR Janis Son RN - 06/03/2019 2:47 PM CST Patient presents to the ED with ongoing neck pain and double vision. Reports was seen last week and diagnosed with a tension headache. States head pain has resolved but has ongoing double vision and neck pain. ESTATE SERVICES ADMINISTRATOR Tj Dempsey MD - 06/03/2019 2:44 PM CST History Chief Complaint: Double vision and neck pain HPI Nell Mcdonnell is an otherwise healthy 33 year old female who presents with double vision and neck pain. The patient had sudden onset of headache on Tuesday morning, 05/28. She does not have a historyof headache and describes this as originating in the back of the head and wrapping around both sidesof the head and up the neck. She was seen in the ED the next day. CT scan of the head and CTA of thehead and neck were obtained without abnormality other than mild to moderate opacification of the paranasal sinuses including the sphenoid sinus possibly of inflammatory nature. She felt improved after Valium and Toradol and discharged with Flexeril. She was seen by her primary care provider the next day and given a muscle relaxer shot that started with a T and instructed to continue with her Flexeril. The headache improved through the week and was mostly resolved this morning, but the patient is still having neck pain. Of most concern to the patient, she developed vertical double vision yesterdayat approximately 1430. This is worse when she stands, walks, or drives and actually becomes quadruple vision. The double vision resolves when covering one eye at a time. She denies trauma to the headand neck, no focal numbness, weakness, or other dysfunction of the extremities. No fevers. ?? CT Head WO Contrast 1. ??No acute intracranial process. 2. ??Mild to moderate opacification paranasal sinuses including sphenoid sinus may be on an inflammatory basis. Imaging independently reviewed and agree with radiologist interpretation. HEAD CTA: 1. Nothing for thrombolic occlusion or high-grade stenosis intracranially. Nothing for dissection orhigh flow vascular malformation. ?? NECK CTA: 1. No hemodynamically significant stenosis in the neck or evidence for dissection. Please see above for details. Allergies: No known drug allergies Medications: Mirena Flexeril Past Medical History: Cervical intraepithelial neoplasia Depression Bipolar Anxiety PTSD Past Surgical History: Tympanostomy [place] teeth extraction Abdomen laparoscopy diagnostic Breast reduction Family History: No past pertinent family history. Social History: Smoking status: Former Alcohol use: No Drug use: No Patient presents alone. PCP: Sofiya Higgins Marital Status: Single Review of Systems Constitutional: Negative for fever. Eyes: Positive for visual disturbance. Musculoskeletal: Positive for neck pain. Neurological: Positive for headaches. Negative for weakness and numbness. All other systems reviewed and are negative. Physical Exam Patient Vitals for the past 24 hrs: BP Temp Pulse Resp SpO2 06/03/19 1800 -- -- -- -- 99 % 06/03/19 1745 108/61 -- -- -- 100 % 06/03/19 1730 -- -- -- -- 100 % 06/03/19 1715 97/66 -- -- -- 99 % 06/03/19 1700 111/62 -- 63 -- 97 % 06/03/19 1615 128/87 -- -- -- -- 06/03/19 1448 (!) 143/84 98.4 ??F (36.9 ??C) 69 16 100 % Physical Exam VS: Reviewed per above HENT: Mucous membranes moist, no nuchal rigidity EYES: sclera anicteric, PERRL BL, EOMI CV: Rate as noted, regular rhythm. RESP: Effort normal. Breath sounds are normal bilaterally. GI: no tenderness/rebound/guarding, not distended. NEURO: GCS 15, cranial nerves II through XII are intact, 5 out of 5 strength in all 4 extremities, sensation is intact light touch in all 4 extremities, subjective binocular diplopia MSK: No deformity of the extremities SKIN: Warm and dry Emergency Department Course ECG (15:58:26): Rate 63 bpm. UT interval 144. QRS duration 90. QT/QTc 440/450. P-R-T axes 34 -10 12. Normal sinus rhythm. Interpreted at 1559 by Tj Dempsey MD. Imaging: Radiology findings were communicated with the patient who voiced understanding of the findings. MRI Brain w/ & w/o contrast: 1. ??Normal Head MRI. 2. ??No mass hemorrhage or stroke. 3. ??No change. Result per radiology. Laboratory: Laboratory findings were communicated with the patient who voiced understanding of the findings. CBC: WBC 8.5, HGB 13.3, PLT 310 BMP: Anion gap 2 (L), o/w WNL (Creatinine 0.7) ISTAT HCG: <5 Interventions: 1608 - NS 1 L IV [place]us Emergency Department Course: Past medical records, nursing notes, and vitals reviewed. 1513: I performed an exam of the patient and obtained history, as documented above. IV inserted and blood drawn. This was sent to laboratory for testing, findings above. The patient was sent for a brain MRI while in the emergency department, findings above. 1736: Findings and plan explained to the Patient. Patient discharged home with instructions regarding supportive care, medications, and reasons to return. The importance of close follow-up was reviewed. I personally reviewed the laboratory and imaging results with the Patient and answered all related questions prior to discharge. Impression & Plan Medical Decision Making: Patient presents to the ER for evaluation of binocular diplopia. On arrival vital signs within normal limits. On exam there are no appreciable neurological deficits however she does describe diplopia with both eyes open but not with either eye closed. She has some minimal neck/occipital discomfort butnot having severe discomfort like she was this past week. No fever or signs of meningitis. Per review of chart, patient was seen in the ER 5 days ago and had negative CT/CTA imaging. It sounds as though this diplopia developed yesterday at 2:30 PM, thus she is not in window for TPA/endovascular procedures. Labs today reveal no evidence of or leukocytosis or other concern. MRI of the brain with and without contrast revealed no acute concern either. At this point will refer the patient to ophthalmology for further evaluation of her visual complaints. Close return precautions were discussed. Diagnosis: ICD-10-CM 1. Diplopia H53.2 Disposition: Discharged to home. Discharge Medications: New Prescriptions No medications on file Scribe Disclosure: I, Riley Hodge, am serving as a scribe at 3:13 PM on 06/03/2019 to document services personally performed by Tj Dempsey MD based on my observations and the provider's statements to me. Riley Hodge 06/03/2019 [facility] EMERGENCY DEPARTMENT Tj Dempsey MD 06/03/19 1805 ESTATE SERVICES ADMINISTRATOR documented in this encounter Plan of Treatment Not on filedocumented as of this encounter Procedures Procedure Name Priority Date/Time Associated Comments Diagnosis MR BRAIN W/O & W STAT 06/03/2019 4:54 PM Resul ts for this CONTRAST REAL ESTATE SERVICES ADMINISTRATOR procedure are i n the results section. CBC WITH PLATELETS & STAT 06/03/2019 4:09 PM R esults for this DIFFERENTIAL REAL ESTATE SERVICES ADMINISTRATOR procedure are i n the results section. BASIC METABOLIC PANEL STAT 06/03/2019 4:09 PM Results for this REAL ESTATE SERVICES ADMINISTRATOR procedure are i n the results section. ISTAT HCG Routine 06/03/2019 4:08 PM Results f or this QUANTITATIVE REAL ESTATE SERVICES ADMINISTRATOR procedure are i n POCT the results section. EKG 12-LEAD, TRACING STAT 06/03/2019 3:58 PM R esults for this ONLY REAL ESTATE SERVICES ADMINISTRATOR procedure are i n the results section. documented in this encounter Results MR Brain w/o & w Contrast (06/03/2019 4:54 PM REAL ESTATE SERVICES ADMINISTRATOR) Anatomical Region Laterality Modality Head, SUBRAD MR NEURO, UMP MR NEURO, RAD MR Magnetic Resonance Specimen (Source) Anatomical Location Collection Method / Collectio n Time Received Time / Laterality Volume Impressions 06/03/2019 5:16 PM REAL ESTATE SERVICES ADMINISTRATOR IMPRESSION: 1. ??Normal Head MRI. 2. ??No mass hemorrhage or stroke. 3. ??No change. CLAYTON PLATT MD Narrative 06/03/2019 5:16 PM REAL ESTATE SERVICES ADMINISTRATOR MRI OF THE BRAIN WITHOUT AND WITH CONTRAST 06/03/2019 4:54 PM HISTORY: ??headache and neck pain x1 wee k, new diplopia since yesterday 230pm COMPARISON: Head CT 05/29/2019. TECHNIQUE: Axial diffusion-weighted with ADC map, T2-weighted with fat saturation, T1-weighted and turboFLAIR a nd coronal T1-weighted images of the brain were obtained without intra venous contrast. ??Following 10ml Gadavist IV, ??axial turboFLAIR and coronal T1-weighted images of the brain were obtained. FINDINGS: INTRACRANIAL CONTENTS: No acute or subac [place] infarct. No mass, acute hemorrhage, or extra-axial fluid collect ions. Normal brain parenchymal signal for age. Ventricles and sulci are normal for age. Normal position of the cerebellar tonsils. No p athologic enhancement. SELLA: No significant abnormality accoun ting for technique. OSSEOUS STRUCTURES/SOFT TISSUES: No aggr essive osseous lesion involving the calvarium, skull base, or visualized upper cervical spine. The major intracranial vascular f low voids are maintained. ORBITS: No significant abnormality accou nting for technique. SINUSES/MASTOIDS: Mild mucosal thickenin g in the sphenoid sinuses. No air-fluid level. No significant middle e ar or mastoid effusion. Procedure Note Clayton Platt MD - 06/03/2019Format ting of this note might be different from the original. MRI OF THE BRAIN WITHOUT AND WITH CONTRA ST 06/03/2019 4:54 PM HISTORY: headache and neck pain x1 week, new diplopia since yesterday 230pm COMPARISON: Head CT 05/29/2019. TECHNIQUE: Axial diffusion-weighted with ADC map, T2-weighted with fat saturation, T1-weighted and turboFLAIR a nd coronal T1-weighted images of the brain were obtained without intra venous contrast. Following 10ml Gadavist IV, axial turboFLAIR and c oronal T1-weighted images of the brain were obtained. FINDINGS: INTRACRANIAL CONTENTS: No acute or subac [place] infarct. No mass, acute hemorrhage, or extra-axial fluid collect ions. Normal brain parenchymal signal for age. Ventricles and sulci are normal for age. Normal position of the cerebellar tonsils. No p athologic enhancement. SELLA: No significant abnormality accoun ting for technique. OSSEOUS STRUCTURES/SOFT TISSUES: No aggr essive osseous lesion involving the calvarium, skull base, or visualized upper cervical spine. The major intracranial vascular f low voids are maintained. ORBITS: No significant abnormality accou nting for technique. SINUSES/MASTOIDS: Mild mucosal thickenin g in the sphenoid sinuses. No air-fluid level. No significant middle e ar or mastoid effusion. IMPRESSION: 1. Normal Head MRI. 2. No mass hemorrhage or stroke. 3. No change. CLAYTON PLATT MD Tj Dempsey MD IMG MRI ORDERABLES (ABNORMAL) Basic metabolic panel (06/03/2019 4:09 PM [facility]) athologist Signature Sodium 139 133 - 144 06/03/2019 [place] mmol/L 4:24 PM [facility] Potassium 3.8 3.4 - 5.3 06/03/2019 [place] mmol/L 4:24 PM [facility] Chloride 108 94 - 109 06/03/2019 [place] mmol/L 4:24 PM [facility] Carbon Dioxide 29 20 - 32 06/03/2019 [place] mmol/L 4:30 PM [facility] Anion Gap 2 (L) 3 - 14 06/03/2019 [place] mmol/L 4:30 PM [facility] Glucose 75 70 - 99 06/03/2019 [place] mg/dL 4:30 PM [facility] Urea Nitrogen 13 7 - 30 06/03/2019 [place] mg/dL 4:30 PM [facility] Creatinine 0.70 0.52 - 06/03/2019 [facility] 1.[facility] mg/dL 4:30 PM [facility] GFR Estimate >90 >60 06/03/2019 [place] mL/min/{1. 4:30 PM [facility] 73_m2} HOSPITAL Comment: Non GFR Calc Starting 03/28/2018, serum creatinine ba sed estimated GFR (eGFR) will be calculated using the Chronic Kidney Dise [employer] [facility] Epidemiology Collaboration (CKD-EPI) equation. GFR Estimate If >90 >60 mL/min/{1.73_m2} 06/03/2019 4: 30 PM [facility] Comment: GFR Calc Starting 03/28/2018, serum creatinine ba sed estimated GFR (eGFR) will be calculated using the Chronic Kidney Dise [employer] [facility] Epidemiology Collaboration (CKD-EPI) equation. Calcium 9.3 8.5 - 10.1 mg/dL 06/03/2019 4:30 PM [facility] Specimen Anatomical Collection Method Collection Time Receive d Time (Source) Location / / Volume Laterality Blood specimen 06/03/2019 4:09 PM 020 4:13 (specimen) REAL ESTATE SERVICES ADMINISTRATOR PM REAL ESTATE SERVICES ADMINISTRATOR Tj Dempsey MD LAB - BLOOD ORDERABLES Performing Organization Address City/State/ZIP Code Phon e Number [place] [address] [address] [place], [place] [address] [facility] [address] [phone] (ABNORMAL) CBC with platelets differential (06/03/2019 4:09 PM REAL ESTATE SERVICES ADMINISTRATOR) [facility] Method Time Signature WBC 8.5 4.0 - 06/03/2019 [facility] 11.0 4:16 PM [facility] 10e9/L [facility] RBC Count 5.08 3.8 - 5.2 06/03/2019 [facility] 10e12/L 4:16 PM [facility] Hemoglobin 13.3 11.7 - 06/03/2019 [facility] 15.7 g/dL 4:16 PM [facility] Hematocrit 41.1 35.0 - 06/03/2019 [facility] 47.0 % 4:16 PM [facility] MCV 81 78 - 100 06/03/2019 [facility] fl 4:16 PM [facility] MCH 26.2 (L) 26.5 - 06/03/2019 [facility] 33.0 pg 4:16 PM [facility] MCHC 32.4 31.5 - 06/03/2019 [facility] 36.5 g/dL 4:16 PM [facility] RDW 13.1 10.0 - 06/03/2019 [facility] 15.0 % 4:16 PM [facility] Platelet Count 310 150 - 450 06/03/2019 [facility] 10e9/L 4:16 PM [facility] Diff Method Automated 06/03/2019 [facility] Method 4:16 PM [facility] % Neutrophils 59.2 % 06/03/2019 [facility] 4:16 PM [facility] % Lymphocytes 32.6 % 06/03/2019 [facility] 4:16 PM [facility] % Monocytes 6.9 % 06/03/2019 [facility] 4:16 PM [facility] % Eosinophils 0.7 % 06/03/2019 [facility] 4:16 PM [facility] % Basophils 0.2 % 06/03/2019 [facility] 4:16 PM [facility] % Immature 0.4 % 06/03/2019 [facility] Granulocytes 4:16 PM [facility] Nucleated RBCs 0 0 /100 06/03/2019 [facility] 4:16 PM [facility] Absolute 5.0 1.6 - 8.3 06/03/2019 [facility] Neutrophil 10e9/L 4:16 PM [facility] Absolute 2.8 0.8 - 5.3 06/03/2019 [facility] Lymphocytes 10e9/L 4:16 PM [facility] Absolute 0.6 0.0 - 1.3 06/03/2019 [facility] Monocytes 10e9/L 4:16 PM [facility] Absolute 0.1 0.0 - 0.7 06/03/2019 [facility] Eosinophils 10e9/L 4:16 PM [facility] Absolute 0.0 0.0 - 0.2 06/03/2019 [facility] Basophils 10e9/L 4:16 PM [facility] Abs Immature 0.0 0 - 0.4 06/03/2019 [facility] Granulocytes 10e9/L 4:16 PM [facility] Absolute 0.0 06/03/2019 [facility] Nucleated RBC 4:16 PM [facility] Specimen Anatomical Collection Method Collection Time Receive d Time (Source) Location / / Volume Laterality Blood specimen 06/03/2019 4:09 PM 020 4:13 (specimen) REAL ESTATE SERVICES ADMINISTRATOR PM REAL ESTATE SERVICES ADMINISTRATOR Tj Dempsey MD LAB - BLOOD ORDERABLES Performing Organization Address City/State/ZIP Code Phon e Number M [facility] [address] [place], [place] [address] [facility] [address] [phone] ISTAT HCG Quantitative POCT (06/03/2019 4:08 PM REAL ESTATE SERVICES ADMINISTRATOR) P athologist Signature HCG Quantitative <5.0 <5.0 IU/L 06/03/2019 [place] [facility] Serum 4:20 PM REAL ESTATE SERVICES ADMINISTRATOR TEST, HANDHELD METER Specimen Anatomical Collection Method Collection Time Receive d Time (Source) Location / / Volume Laterality 06/03/2019 4:08 PM 0 4:20 REAL ESTATE SERVICES ADMINISTRATOR PM REAL ESTATE SERVICES ADMINISTRATOR Tj Dempsey MD LAB - BEAKER POCT Performing Organization Address City/State/ZIP Code Phon e Number [facility] POINT OF CARE TEST, HANDHELD METER POINT OF CARE TEST, HANDHELD METER EKG 12-lead, tracing only (06/03/2019 3:58 PM REAL ESTATE SERVICES ADMINISTRATOR) [facility] gist Method Time Signature Interpretation ECG Click View RADIOLOGY Image link RESULTS to view waveform and result Specimen (Source) Anatomical Collection Method Collection Time Re ceived Time Location / / Volume Laterality 06/03/2019 3:58 PM REAL ESTATE SERVICES ADMINISTRATOR Tj Dempsey MD ECG ORDERABLES Performing Organization Address City/State/ZIP Code Phon e Number RADIOLOGY RESULTS documented in this encounter Visit Diagnoses Diagnosis Diplopia documented in this encounter Administered Medications Inactive Administered Medications - up to 3 most recent administrations Medication Order MAR Action Action Date Dose Rate Site 0.9% sodium chloride BOLUS New Bag 06/03/2019 4:08 PM REAL ESTATE SERVICES ADMINISTRATOR 1,000 mLs 1000 mL/hr Intravenous, 1,000 mL, ONCE, at 1,000 mL/hr, Administer over 1 Hours, On 06/03/19 at 1532, For 1 dose gadobutrol (GADAVIST) injection 10 mL Given 06/03/2019 4:27 PM REAL ESTATE SERVICES ADMINISTRATOR 10 mLs 10 mL, Intravenous, ONCE, On 06/03/19 at 1621, For 1 dose, Supplied by, and administered by MRI. sodium chloride 0.9% infusion at 125 mL/hr, Intravenous, CONTINUOUS, A dminister after the bolus., Starting on 06/03/19 at 1632, Until 06/03/19 at 2004 documented in this encounter Active and Recently Administered Medications Times are shown in REAL ESTATE SERVICES ADMINISTRATOR. Scheduled Medication Order 06/01/2019 06/02/2019 06/03/2019 0.9% sodium chloride BOLUS (COMPLETED) 1608 (New Bag - Provider: Mansoor Muhammad RN)1757 (Stopped - Provider: Mansoor Muhammad RN) Intravenous, 1,000 mL, ONCE, at 1,000 mL /hr, Administer over 1 Hours, On 06/03/19 at 1532, For 1 dose gadobutrol (GADAVIST) injection 10 mL (COMPLETED) 1627 (Given - Provider: Jackie Toledo) 10 mL, Intravenous, ONCE, 06/03/19 at 1621, For 1 dose, Supplied by, and administered by MRI. Continuous Medication Order 06/01/2019 06/02/2019 06/03/2019 sodium chloride 0.9% infusion 16 32 (Canceled Entry - Provider: Orders Generic Provider - Comment: Automatically canceled at discontinue of medication order) at 125 mL/hr, Intravenous, CONTINUOUS, A dminister after the bolus., Starting 06/03/19 at 1632, Until 06/03/19 at 2003 documented in this encounter Care Teams Swine Genetics Researcher Relationship Specialty Start Date End Date Sofiya Higgins MD PCP - General Family Practice 05/29/19 [facility] [id number] [place] [id number] documented as of this encounter
--- OUTSIDE RECORDS SUMMARY | 2022-01-26 21:55 | XMS_ITS | Encounter Summary ---
:1985 Author Organization [place] Address [address] [place] [address] Care Team Providers Name Role Phone Sofiya Higgins MD Primary Care Provider Lou Hare MD Unavailable Jean Meade MD Unavailable Encounter Details Date Type Department Care Team Description 06/14/2019 [facility] Only [facility] Eye Cliff Meade MD Subjective visual Clinic - [address] disturbance (Primary Eric [place], [place] Dx) Building [address] [place] [address] [facility] [address] [place] [address] Social History Tobacco Use Types Packs/Day Years Used Date Smoking Tobacco: Former Smokeless Tobacco: Never Sex Assigned at Date Recorded Not on file documented as of this encounter Plan of Treatment Not on filedocumented as of this encounter Visit Diagnoses Diagnosis Subjective visual disturbance - Primary Subjective visual disturbance, unspecifi ed documented in this encounter Care Teams Data Support Specialist Relationship Specialty Start Date End Date Sofiya Higgins MD PCP - General Family Practice 05/29/19 [facility] [address] [place], [place] [id number] Lou Hare MD Referring Physician Osteopathy 06/11/19 [facility] [address] [place] [address] Jean Meade MD MD Ophthalmology 06/11/19 documented as of this encounter
--- OUTSIDE RECORDS SUMMARY | 2022-01-26 21:55 | XMS_ITS | Encounter Summary ---
:1985 Author Organization [place] Address [address] [place] [address] Care Team Providers Name Role Phone Sofiya Higgins MD Primary Care Provider Encounter Details Date Type Department Care Team Description 05/29/2019 Travel Social History Tobacco Use Types Packs/Day Years Used Date Smoking Tobacco: Never Assessed Sex Assigned at Date Recorded Not on file documented as of this encounter Plan of Treatment Not on filedocumented as of this encounter Visit Diagnoses Not on filedocumented in this encounter Care Teams Geriatric Social Worker Relationship Specialty Start Date End Date Sofiya Higgins MD PCP - General Family Practice 05/29/19 [facility] [id number] [place] [address] documented as of this encounter
[2022-01-26 22:00] VITALS: BP 111/68; PULSE 75; RESP 19; O2SAT 97
[2022-01-26 22:09] LABS: Chloride* 101 mmol/L (96-114); Potassium* 3.9 mmol/L (3.6-5.1); Sodium* 135 mmol/L (135-149)
[2022-01-26 22:11] LABS: Creatinine* 0.6 mg/dL (0.5-1.5); Est. Creatinine Clearance* 104.49; Estimated Glomerular Filt Rate 121 ml/min
[2022-01-26 22:12] LABS: Blood Urea Nitrogen* 12 mg/dL (5-24); Calcium* 9.1 mg/dL (8.4-10.6); Carbon Dioxide* 27 mmol/L (20-32); Glucose* 144 mg/dL (60-115); Lipase* 146 U/L (23-300)
--- NOTE | 2022-01-26 22:19 | ED.NURSE ---
no change in chest and arm pain after the gi cocktail. does not like the bp cuff on her r arm. 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
[2022-01-26 22:26] LABS: Troponin I* < 0.01 ng/mL (0.01-0.04)
[2022-01-26 22:41] LABS: D Dimer Quantitative* 0.27 ug/ml (0.00-0.50)
[2022-01-27 09:24] LABS: Basophils Absolute Auto 0.04 K/uL (0.00-0.30); Basophils Percent Auto 0.4 % (0.0-3.0); Eosinophils Absolute Auto 0.12 K/uL (0.00-0.50); Eosinophils Percent Auto 1.3 % (0.0-7.0); Hematocrit 35.5 % (33.0-51.0); Hemoglobin* 11.9 gm/dL (12.0-16.0); Immature Granulocytes Abs Auto 0.03 K/uL (0.00-0.30); Lymphocytes Percent Auto 35.9 % (20-44); Mean Corpuscular HGB Conc 34 gm/dL (32-36); Mean Corpuscular Hemoglobin 26 pg (26-34); Mean Corpuscular Volume 79 fL (80-100); Monocytes Percent Auto 6.8 % (0.0-11.0); Neutrophils Absolute Auto 5.08 K/uL (1.7-7.0); Neutrophils Percent Auto 55.3 % (42.0-72.0); Platelet Count* 296 K/uL (140-440); RDW Coefficient of Variation % 13.2 % (11.5-15.5); Red Blood Count 4.51 m/uL (4.00-5.20)
[2022-01-27 09:32] LABS: Slide Review Reflex No
== END 2022-01-26 22:51 | disposition home or self-care (01) ==
PROVIDERS: Emergency Provider Family Medicine; PCP Family Medicine
DX: R07.89 Other chest pain (principal); K21.9 Gastro-esophageal reflux disease without esophagitis; Z82.49 Family history of ischemic heart disease and other diseases of the circulatory system; Z87.891 Personal history of nicotine dependence
CPT/HCPCS: 36415; 71045; 80048; 83690; 84484; 85025; 85379; 99283; 99284; A9270

== ENCOUNTER 2023-08-28 20:53 | Emergency (ER) | payer BC, MEDICAID, SELFPAY ==
[2023-08-28 21:05] VITALS: BP 124/82; PULSE 98; RESP 16; TEMP 36.6; O2SAT 99; BMI 51.1
[2023-08-28 21:21] LABS: Appearance Urine Clear (Clear); Bilirubin Urine Negative (Negative); Blood Urine 2+ (Negative); Color Urine Yellow (Yellow); Glucose Urine Negative (Negative); Ketones Urine Negative (Negative); Leukocyte Esterase Urine 1+ (Negative); Nitrite Urine Negative (Negative); Protein Urine Negative (Negative); Specific Gravity Urine 1.025 (1.000-1.030); pH Urine 6.5 (5.0-8.5)
[2023-08-28 21:35] LABS: Bacteria Urine Few; Squamous Epithelial Cell Urine Many (None-Few)
--- NOTE | 2023-08-28 22:03 | ED_ITS ---
HPI - General Adult General Chief complaint: Urogenital Problems, Female Stated complaint: UTI Time Seen by Provider: 08/28/23 21:27 History of Present Illness HPI narrative: was recently treated with antibiotic for a UTI, just finished on . starting tuesday new symptom began itching and burning of the vagina, irritation with urination. denies fever or chills. no blood in urine 37-year-old woman presenting to the emergency depart with concern of vaginal area itching and sort of dysuria. Apparently was recently treated for urinary tract infection and following completion of this treatment has started to have symptoms as above. No hematuria. No fever. No flank pain. Just really irritated. No unusual discharge noted. Related Data Previous Rx's ?Medication ?Instructions ?Recorded fluconazole 150 mg tablet 150 mg PO ONCE #1 tab 08/28/23 Allergies Allergy/AdvReac Type Severity Reaction Status Date / Time No Known Drug Allergies Allergy Verified 01/26/22 21:25 Review of Systems Status of ROS: Reports: 6 or more systems reviewed and unremarkable except as noted in History and below PFSH PFS Medical History UTI (urinary tract infection) ?N39.0 - Urinary tract infection, site not specified (ICD-10) Tension-type headache, unspecified, intractable ?G44.201 - Tension-type headache, unspecified, intractable (ICD-10) Pain in left knee ?M25.562 - Pain in left knee (ICD-10) Morbid obesity ?E66.01 - Morbid (severe) obesity due to excess calories (ICD-10) Generalized anxiety disorder ?F41.1 - Generalized anxiety disorder (ICD-10) Dyslexia ?R48.0 - Dyslexia and alexia (ICD-10) Depressive disorder ?F32.A - Depression, unspecified (ICD-10) KRISTEN I (cervical intraepithelial neoplasia I) ?N87.0 - Mild cervical dysplasia (ICD-10) Bipolar disorder, current episode depressed, mild ?F31.31 - Bipolar disorder, current episode depressed, mild (ICD-10) Acute vaginitis ?N76.0 - Acute vaginitis (ICD-10) 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, unspecified eye (ICD-10) Surgical History History of tympanostomy ?Z98.890 - Other specified postprocedural states (ICD-10) History of wisdom tooth extraction ?K08.409 - Partial loss of teeth, unspecified cause, unspecified class (ICD- 10) H/O laparoscopy ?Z98.890 - Other specified postprocedural states (ICD-10) Hx of breast reduction, elective ?Z98.890 - Other specified postprocedural states (ICD-10) Social History Smoking Status: Former smoker Do you use any of these nicotine containing products: None Second hand tobacco smoke exposure: No How often do you have a drink containing alcohol: 2-4 times a month How many standard drinks containing alcohol do you have on a typical day: 1 or 2 How often do you have six or more drinks on one occasion: Never AUDIT-C Alcohol total score: 2 Non-prescribed substance use: denies use service: No Exam Narrative: Exam Narrative: Pleasant. Is a little uncomfortable. Skin is warm and dry. Breathing easily. Abdomen is soft and not particular tender. exam was not done. Const: Vital Signs, click to edit/add: Vital Signs - 24 hr 08/28/23 21:05 Temperature 97.8 F Pulse Rate [Right Pulse Oximeter] 98 Respiratory Rate 16 Blood Pressure [Ri ght Upper Arm] 124/82 Pulse Oximetry 99 Oxygen Delivery Me thod Room Air Documenting provider has reviewed patient's vital signs: yes Course Vital Signs Vital signs: Initial Vital Signs Temperature 97.8 F 08/28/23 21:05 Temperature Source Temporal Artery Scan 08/28/23 21:05 Pulse Rate 98 08/28/23 21:05 Respiratory Rate 16 08/28/23 21:05 Blood Pressure 124/82 08/28/23 21:05 Blood Pressure Mean 96 08/28/23 21:05 Blood Pressure Position Sitting 08/28/23 21:05 Pulse Oximetry 99 08/28/23 21:05 Oxygen Delivery Method Room Air 08/28/23 21:05 Vital Signs Temperature 97.8 F 08/28/23 21:05 Pulse Rate 98 08/28/23 21:05 Respiratory Rate 16 08/28/23 21:05 Blood Pressure 124/82 08/28/23 21:05 Pulse Oximetry 99 08/28/23 21:05 Oxygen Delivery Method Room Air 08/28/23 21:05 Temperature 97.8 F 08/28/23 23:35 Pulse Rate 89 08/28/23 23:35 Respiratory Rate 16 08/28/23 23:35 Blood Pressure 118/74 08/28/23 23:35 Pulse Oximetry 99 08/28/23 23:34 Oxygen Delivery Method Room Air 08/28/23 23:34 Medical Decision Making MDM Narrative Medical decision making narrative: In light of recent urinary tract infection and antibiotics I would have concerns about secondary yeast or BV in particular. Would collect a wet prep here. Could be unrelated irritation as well. I have asked Ms. Mcdonnell to collect her own wet prep. Urinalysis as well. Reviewed labs. Has unconvincing evidence of the UTI. However would treat if clearly culture positive. Wet prep was negative. Think might just need some time to rebalance vaginal davidson. If this is continuing though would follow-up for exam with primary perhaps. Might be good to have a Diflucan pocket pill. See patient discharge plan for further discussion Lab Data Lab results reviewed: Yes I reviewed the patient's lab results Labs: Lab Results 08/28/23 08/28/23 Range/Units 21:14 22:11 Urine Color Yellow (Yellow) Urine Appearance Clear (Clear) Urine pH 6.5 (5.0-8.5) Ur Specific [place] 1.025 (1.000-1.030) Urine Protein Negative (Negative) Urine Glucose (UA) Negative (Negative) Urine Ketones Negative (Negative) Urine Blood 2+ A (Negative) Urine Nitrite Negative (Negative) Urine Bilirubin Negative (Negative) Urine Urobilinogen 1.0 (0.2-1.0) Ur Leukocyte Esterase 1+ A (Negative) Urine RBC 2-5 A (0-2) Urine WBC 2-5 (0-5) Ur Squamous Epith Cells Many A (None-Few) Urine Bacteria Few A (None) Vaginal Trichomonas No Trichomonas Seen (None Seen) Vaginal Yeast No Yeast Seen (None Seen) Vaginal Clue Cells No Clue Cells Seen (None Seen) Discharge Plan Discharge Clinical Impression: Vaginitis Patient Disposition: Home, Self-Care Condition: Stable Additional Instructions: We will be culturing your urine. Will call with results and discuss treatment if indicated. Consider using [id number] soothing creams or ointments. New discharge, particularly clumpy and experiencing continued itchiness would certainly be a reason to start the Diflucan pill I am calling in for you. The assumption would be that there might be some yeast/fungal infection. Be seen/return for worsening dysuria, increasing abdominal pain, fever. Prescriptions: New fluconazole 150 mg tablet 150 mg PO ONCE Qty: 1 1RF Follow Up/Referrals: Sofiya Higgins MD [Primary Care Provider] - Stand Alone Forms: [employer] Info Instructions
--- OUTSIDE RECORDS SUMMARY | 2023-08-28 22:27 | XMS_ITS | Clinical Summary ---
Author Name Unknown Organization [employer] [facility] Address [place], [place] [address] Care Team Providers Care Piece Dye Worker Name Role Phone Sofiya Higgins MD Primary Care Provider [phone] Allergies No known active allergies Medications Medication Sig Dispensed Refills Start Date End Date Status FLUoxetine (PROZAC) 10 mg capsuleIndication s:Major depressive disorder, recurrent, moderate (HC),LYNDA (generalized anxiety disorder) Take 1 Capsule (10 mg) by mouth once daily. 30 Capsule 02/28/2023 Active Additional Information Patient not taking.Reported on 08/07/2023 amoxicillin (AMOXIL) 500 mg capsuleIndication s:Strep throat Take 2 Capsules (1,000 mg) by mouth once daily for 10 days. 20 Capsule 08/07/2023 08/17/2023 Hospital, Clinic, or Other Facility Administered Medication Ordered Dose Route Frequency Start Date End Date Status levonorgestrel intrauterine device 1 Device (MIRENA)Indications:Encounter for IUD insertion 1 Device IU Q 5 YEARS 12/24/2015 Active Active Problems Problem Noted Date Diagnosed Date Major depressive disorder, recurrent, moderate 1 04/30/2022 Chronic pain of both knees 02/28/2023 LYNDA (generalized anxiety disorder) 02/28/2023 Urgency of urination 04/16/2020 Acute vaginitis 04/16/2020 Urinary tract infection, site not specified 12/11 Other specified noninflammatory disorders of vag shilpi 01/05/2020 Bipolar disorder, current episode depressed, mil d 08/21/2019 Generalized anxiety disorder 08/21/2019 Tension-type headache, unspecified, intractable 05/31/2019 Sprain of medial collateral ligament of left kne e 05/23/2019 Pain in left knee 04/11/2019 Sprain of unspecified ligame nt of left ankle, initial encounter 01/13/2019 Supervision of other normal , antepartu m 09/30/2015 Insulin controlled gestation al diabetes mellitus (GDM) in third trimester 09/16/2015 Rh negative status during pr egnancy in second trimester, antepartum 06/17/2015 Encounter for supervision of other normal , first trimester 05/07/2015 Overview: IDDM - gestational. BPP's Excessive weight gain 06/06/2014 Morbid obesity 03/21/2012 Active labor 07/27/2011 RLQ abdominal pain 01/22/2009 Overview: Laparoscopic evaluation: ovarian cyst removed 01/2009. HEALTH MAINTENANCE 09/12/2006 Overview: Last Physical: Est Care 09/12/2006 Colonoscopy: Age 52 Breast: [employer] PAP: [employer] 05/2006 Carotid U/S: Age 67 Dexa scan: Age 57 Lipids: 165, TG 49, HDL 57, LDL 98 03/2006 ALT/AST: 02/21 Positive chlamydia 05/2006 NEXT VISIT: recheck Hemoglobin in 01/2007 Posttraumatic stress disorder IRON DEFICIENCY ANEMIA Overview: Microcytic, Hemoglobin 11.6, MCV 78 05/2006 Hemoglobin 10.3, MCV 76 09/2006 on PPI without reflux symptoms currently STFR/ferritin 9.3/3 --> 13.26 09/2006 Celiac panel negative and peripheral smear consistent with with KEVIN 09/2006. Fe supplement started 09/2006 Likely due to menstruation. KRISTEN I (cervical intraepithelial neoplasia I) Resolved Problems Problem Noted Date Diagnosed Date Resolved Date Bipolar disorder, unspecified 02/15/2011 Overview: Patient follows with psychiatry. diagnosed 2005, patient feels better with lithium. Anxiety state, unspecified 1 04/17/2010 Encounters Date Type Department Care Team Description 08/07/2023 8:05 AM CDT Office Visit [facility] [place] [address] [place] [address] Eren Lisa MD Throat Problem 08/07/2023 Travel from Last 3 Months Immunizations Name Administration Dates Next Due COVID-19 Vaccine Spikevax (M oderna 50mcg/0.5mL) 12YO+ [id number] Formula PF 02/28/2023 COVID-19 vaccine (Pfizer-Bio NTech 30mcg/0.3mL) 12YO+ BIVALENT PF, MDV 01/18/2022 DTaP 12/22/1993 Hepatitis B (Peds) 02/11/1996,04/18/1995, 995 Human Papilloma Virus Vaccine 04/29/2009, 009,07/18/2008 Influenza Intradermal PF 18-64 yrs 03/21/2012 Influenza, IIV3 (Age 6-35 mos) 04/29/2009 Influenza, IIV3 (Age >=3 years) 01/30/2014,01/28 Influenza, IIV4 02/28/2023,,04/12/2019,2017,01/03/2016 Influenza,CCIIV4 PRESERV FREE 12/19/2019, 017 MMR 11/15/2015,08/17/1999 Pneumococcal Conj 20-valent (Prevnar 20) 02/28/2023 Td (Age >=7 Years) 04/11/2004,08/17/1999 Tdap 09/16/2015,11/18/2009 Family History Medical History Relation Name Comments Good Health Brother 2 Cancer-pancreatic Father Endometriosis Maternal Grandmother Good Health Mother Unknown Other No known family history of colon/uterine/ovarian/cervical cancer Diabetes Paternal Grandfather Diabetes Paternal Grandmother Good Health Sister 2 Relation Name Status Comments Brother 1 Alive Brother 2 Father Alive Maternal Grandmother Mother Alive Other Paternal Grandfather Paternal Grandmother Sister 1 Alive Sister 2 Social History Tobacco Use Types Packs/Day Years Used Date Smoking Tobacco: Former Cigarettes 0.1 18.4 S tarted: 2005 Smokeless Tobacco: Never Tobacco Cessation:Counseling Given: Not Answered Comments:one cigarette qod x 2 years, 09/2006 Alcohol Use Standard Drinks/Week Comments Yes 1 (1 standard drink = 0.6 oz pur e alcohol) occ PHQ-2 Answer Date Recorded PHQ-2 TOTAL SCORE 4 02/28/2023 Social Connections Answer Date Recorded Frequency of Communication with Friends and Fami ly 0 12/25/2022 Financial Resource Strain Answer Date R ecorded Difficulty of Paying Living Expenses 2 12/25/2022 Difficulty of Paying Living Expenses 1 12/25/2022 Food Insecurity Answer Date Recorded Worried About Running Out of Food in the Last Ye ar 2 12/25/2022 Transportation Needs Answer Date Record ed Lack of Transportation (Medical) 1 12/25/2022 Housing Stability Answer Date Recorded Unable to Pay for Housing in the Last Year 1 12/25/2022 Sex and Gender Information Value Date Recorded Sex Assigned at Not on file Gender Identity Not on file Sexual Orientation Not on file Obstetrics History Para Term AB IAB SAB Ectopic Multiple Livin g Live Births 5 2 2 0 3 0 0 0 0 2 2 Date Outcome GA Total Labor Labor/2nd/3rd Weight Sex Delivery Anes PTL Melva A1 A5 Name Cl in 07/24 Term 39w 1d 2.63 kg (5 lb 12.8 oz) F Vag Delma ng 9 9 GENZL ER,BG Delivery Location:[facility] 2014 AB 6w0 d 2014 AB 6w0 d 2014 AB 6w0 d 11/13 Term 39w 1d 3.66 kg (8 lb 1 oz) M Vag Epidu ral N Delma ng 7 8 GENZL ER,BB KATEL YN Complications:None Delivery Location:[facility] Last Filed Vital Signs Vital Sign Reading Time Taken Comments Blood Pressure 140/63 08/07/2023 8:10 AM CDT Pulse 84 08/07/2023 8:10 AM CDT Temperature 37 ??C (98.6 ??F) 08/07/2023 8:10 AM CDT Respiratory Rate 16 08/07/2023 8:10 AM CDT Oxygen Saturation 99% 08/07/2023 8:10 AM CDT Inhaled Oxygen Concentration - - Weight 119.7 kg (264 lb) 08/07/2023 8:09 AM CDT Height 152.4 cm (5') 08/07/2023 8:09 AM CDT Body Mass Index 51.56 08/07/2023 8:09 AM CDT Plan of Treatment Health Maintenance Due Date Last Done Comments Hepatitis C screening for ag e 18-79 09/03/2005 Influenza for age 9-49 12/11/2023 , 01/18/2022, 12/19/2019, Additional history exists Depression screening for age 12+ 03/08/2024 03/08/2023, 02/28/2023, 02/06/2016, Additional history exists BMI (ht and wt on same day) for age 18+ 08/06/2024 08/07/2023, 02/28/2023, 12/25/2022, Additional history exists Pap test for age 21-65 10/29/2024 (Verified in Care Everywhere or Patient Record), 05/07/2015, 07/18/2008 Tetanus booster 09/15/2025 09/16/2015, 11/09, 04/11/2004, Additional history exists HIV for age 15-65 Completed 05/07/2015 Tdap Completed 09/16/2015, 11/18/2009 COVID-19 vaccine series Completed 02/29/20, 01/18/2022, 03/28/2021, Additional history exists Pneumococcal series for age 6-64 Completed 02/29/20 Procedures Procedure Name Priority Date/Time Associated Diagnosis Comments THROAT RAPID STREP ONLY CLINIC STAT 08/07/2023 8:12 AM CDT Sore throat ANTI HIV 1/2 Routine 05/07/2015 2:14 PM COMPUTER CUSTOMER SUPPORT SPECIALIST Encounter for supervision of other normal , first trimester CRIPPLE CHASER THIN PREP PAP SCREEN IMAGED Routine 05/07/2015 2:14 PM COMPUTER CUSTOMER SUPPORT SPECIALIST Encounter for supervision of other normal , first trimester from Last 3 Months or Most Recently Relevant to Health Maintenance Results * (ABNORMAL) THROAT RAPID STREP ONLY CLINIC (08/07/2023 8:12 AM CDT) THROAT RAPID STREP A ANTIGEN Positive(A ) 08/07/2023 8:[address] [facility] Throat SPECIMEN FROM THROAT / Unknown Non-Blood / Unknown 08/07/2023 8:12 AM CDT 08/07/2023 8:15 AM CDT Sultana Myers NP MICROBIOLOGY [facility] [address] [place] [address], [place] * CRIPPLE CHASER THIN PREP PAP SCREEN IMAGED (05/07/2015 2:14 PM COMPUTER CUSTOMER SUPPORT SPECIALIST) CRIPPLE CHASER CYTOLOGY See Anatomic Pathology case 05/12/2015 3:00 PM COMPUTER CUSTOMER SUPPORT SPECIALIST [facility] Specimen (specimen) (Cervical) Non-Blood / Unknown 05/07/2015 2:14 PM COMPUTER CUSTOMER SUPPORT SPECIALIST 05/07/2015 2:14 PM COMPUTER CUSTOMER SUPPORT SPECIALIST Sultana Guthrie NP PATHOLOGY/CYTOLO GY Performing Organization Address City/[facility]/ZIP Co de Phone Number [facility] [address] [place] [address], [place] * ANTI HIV 1/2 (05/07/2015 2:14 PM COMPUTER CUSTOMER SUPPORT SPECIALIST) HIV-1/HIV-2 ANTIBODY Non-Reacti ve Non-Reacti ve 05/07/2015 6:04 PM COMPUTER CUSTOMER SUPPORT SPECIALIST [facility] Blood specimen (specimen) BLOOD SPECIMEN / Unknown Venipuncture / Unknown 05/07/2015 2:14 PM COMPUTER CUSTOMER SUPPORT SPECIALIST 05/07/2015 2:31 PM COMPUTER CUSTOMER SUPPORT SPECIALIST Narrative [facility] - 05/07/2015 6:04 PM COMPUTER CUSTOMER SUPPORT SPECIALIST HIV-1 p24 and HIV-1/HIV-2 Ab not detected Sultana Guthrie NP SEND OUTS [facility] [address] [place] [address], [place] from Last 3 Months or Most Recently Relevant to Health Maintenance Advance Directives * Full Code (Latest Code Status on File) Date Activated Date Inactivated Comments 11/14/2015 7:21 AM 11/15/2015 5:03 PM * Full Code Date Activated Date Inactivated Comments 11/14/2015 1:30 AM 11/14/2015 7:21 AM * Full Code Date Activated Date Inactivated Comments 11/13/2015 6:48 PM 11/14/2015 1:30 AM * Full Code Date Activated Date Inactivated Comments 08/20/2015 7:39 PM 08/20/2015 11:07 PM * Full Code Date Activated Date Inactivated Comments 07/25/2011 1:45 PM 07/27/2011 3:24 PM Care Teams Piece Dye Worker Relationship Specialty [place] [address] [place] [address] PCP - General Family Practice 11/10/20
--- OUTSIDE RECORDS SUMMARY | 2023-08-28 22:27 | XMS_ITS | Encounter Summary ---
Author Name Unknown Organization [place] Address [address] [place] [address]. [place] [address] Care Team Providers Care Flexible Babysitter Name Role Phone Lashawnt Sofiya Perez MD Primary Care Provider [phone] Lou Hare MD Unavailable [phone] Jean Meade MD Unavailable [phone] Reason for Visit * Reason Comments Urgent Care Sore throat x a few hours . Encounter Details Date Type Department Care Team (Latest Contact Info) Description 07/17/2023 1:30 PM CDT Office Visit [facility] [place] [id number] [place] [id number] Rae Bee, PA-C Streptococcal pharyngitis (Primary Dx); Sore throat Social History Tobacco Use Types Packs/Day Years Used Date Smoking Tobacco: Former Smokeless Tobacco: Never Tobacco Cessation:Counseling Given: Not Answered Adolescent Education Answer Date Record ed Getting School Help Needed Not on file 07/16 Sex and Gender Information Value Date Recorded Sex Assigned at Not on file Gender Identity Not on file Sexual Orientation Not on file documented as of this encounter Last Filed Vital Signs Vital Sign Reading Time Taken Comments Blood Pressure 132/84 07/17/2023 1:40 PM CDT Pulse 82 07/17/2023 1:40 PM CDT Temperature 36.9 ??C (98.4 ??F) 07/17/2023 1:40 PM CD T Respiratory Rate 18 07/17/2023 1:40 PM CDT Oxygen Saturation 98% 07/17/2023 1:40 PM CDT Inhaled Oxygen Concentration - - Weight 114.8 kg (253 lb) 07/17/2023 1:40 PM CDT Height 152.4 cm (5') 07/17/2023 1:40 PM CDT Body Mass Index 49.41 07/17/2023 1:40 PM CDT documented in this encounter Progress Notes * Rae Bee PA-C - 07/17/2023 1:30 PM CDT Assessment & Plan: ICD-10-CM 1. Streptococcal pharyngitis J02.0 penicillin V (VEETID) 500 MG tablet 2. Sore throat J02.9 Streptococcus A Rapid Screen w/Reflex to PCR - Clinic Collect Influenza A & B Antigen - Clinic Collect CANCELED: Group A Streptococcus PCR Throat Swab Plan/Clinical Decision Making: Patient with acute ST, exposed to strep. Erythema of throat today. Strep positive. Treated with course of penicillin. Rest, fluids, Tylenol, ibuprofen as needed. Return if symptoms worsen or fail to improve, for in 3-5 days. At the end of the encounter, I discussed results, diagnosis, medications. Discussed red flags for immediate return to clinic/ER, as well as indications for follow up if no improvement. Patient understood and agreed to plan. Patient was stable for discharge. Rae Bee PA-C on 07/17/2023 at 1:54 PM Subjective: HPI: Nell is a 37 year old female who presents to clinic today for the following health issues: Chief Complaint Patient presents with Urgent Care Sore throat x a few hours . HPI Patient complains of ST for several hours. Exposed to strep. Some ear discomfort. Review of Systems Constitutional: Negative for fever. HENT: Positive for sore throat. Negative for congestion and rhinorrhea. Respiratory: Negative for cough. Patient Active Problem List Diagnosis Bipolar disorder, current episode depressed, mild (H) Chronic pain of both knees KRISTEN I (cervical intraepithelial neoplasia I) Insulin controlled gestational diabetes mellitus (GDM) in third trimester Iron deficiency anemia Major depressive disorder, recurrent, moderate (H) Morbid obesity (H) Other specified noninflammatory disorders of vagina Generalized anxiety disorder Posttraumatic stress disorder History reviewed. No pertinent past medical history. Social History Tobacco Use Smoking status: Former Smokeless tobacco: Never Substance Use Topics Alcohol use: Not on file Objective: Vitals: 07/17/23 1340 BP: 132/84 Pulse: 82 Resp: 18 Temp: 98.4 ??F (36.9 ??C) TempSrc: Oral SpO2: 98% Weight: 114.8 kg (253 lb) Height: 1.524 m (5') Physical Exam EXAM: Pleasant, alert, appropriate appearance. NAD. Head Exam: Normocephalic, atraumatic. Eye Exam: non icteric/injection. Ear Exam: TMs ching without bulging. Normal canals. Normal pinna. Nose Exam: Normal external nose. OroPharynx Exam: Moist mucous membranes. positive erythema, pharynx without exudate or hypertrophy. Neck/Thyroid Exam: No LAD. Chest/Respiratory Exam: CTAB. Cardiovascular Exam: RRR. No murmur or rubs. Results: Results for orders placed or performed in visit on 07/17/23 Streptococcus A Rapid Screen w/Reflex to PCR - Clinic Collect Status: Abnormal Specimen: Throat; Swab Result Value Ref Range Group A Strep antigen Positive (A) Negative documented in this encounter Plan of Treatment Not on file documented as of this encounter Procedures Procedure Name Priority Date/Time Associated Diagnosis Comments STREPTOCOCCUS A RAPID SCREEN W REFELX TO PCR Routine 07/17/2023 1:46 PM CDT Sore throat INFLUENZA A/B ANTIGEN Routine 07/17/2023 1:46 PM CDT Sore throat documented in this encounter Results * Influenza A & B Antigen - Clinic Collect (07/17/2023 1:46 PM CDT) Influenza A antigen Negative Negative 07/17/2023 2:16 PM CDT [facility] Influenza B antigen Negative Negative 07/17/2023 2:16 PM CDT [facility] Swab NASAL STRUCTURE / Unknown Non-blood Collection / Unknown 07/17/2023 1:46 PM CDT 07/17/2023 1:54 PM CDT Narrative [facility] - 07/17/2023 2:16 PM CDT Test results must be correlated with clinical data. If necessary, results should be confirmed by a molecular assay or viral culture. Rae Corona [employer] PA-C LAB - MICRO GENERAL ORDERABLES Performing Organization Address City/[facility]/ZIP Co de Phone Number LABORATORY [facility] [address] [facility] (no room number, [facility]) [place] [address], [facility] [phone] * (ABNORMAL) Streptococcus A Rapid Screen w/Reflex to PCR - Clinic Collect (07/17/2023 1:46 PM CDT) Group A Strep antigen Positive(A ) Negative 07/17/2023 2:05 PM CDT LABORATORY Comment:This is a corrected result. Previous result was Negative on 07/17/2023 at 2:04 PM CDT Swab STRUCTURE OF ANTERIOR PORTION OF NECK / Unknown Non-blood Collection / Unknown 07/17/2023 1:46 PM CDT 07/17/2023 1:54 PM CDT Rae L [employer] PA-C LAB - MICRO GENERAL ORDERABLES Performing Organization Address City/[facility]/ZIP Co de Phone Number LABORATORY [facility] [address] [facility] (no room number, [facility] [place] [address], [facility] [phone] documented in this encounter Visit Diagnoses Diagnosis Streptococcal pharyngitis- Primary Streptococcal sore throat Sore throat Acute pharyngitis documented in this encounter Care Teams Flexible Babysitter Relationship Specialty [place] [address] [place] [address] PCP - General Family Practice 05/29/19 Lou Hare MD [facility] [address] [place] [address] Referring Physician Osteopathy 06/11/19 Jean Meade MD [place] [address] [place] [address] Ophthalmology 06/11/19 documented as of this encounter
--- OUTSIDE RECORDS SUMMARY | 2023-08-28 22:27 | XMS_ITS | Referral Summary ---
Author Name Unknown Organization [place] Address [address] [place] [address]. [place] [address] Care Team Providers Care Nuclear Equipment Sales Engineer Name Role Phone Sofiya Higgins MD Primary Care Provider [phone] Lou Hare MD Unavailable [phone] Jean Meade MD Unavailable Encounters Date Type Department Care Team Description 07/17/2023 Travel 07/17/2023 1:30 PM CDT Office Visit [facility] [place] [id number] [place] [phone] Rae Bee, VIVIANA Streptococcal pharyngitis (Primary Dx); Sore throat from Last 3 Months Allergies No known active allergies Medications Medication Sig Dispensed Refills Start Date End Date Status acetaminophen (TYLENOL) 325 MG tablet Take 650 mg by mouth Acti ve levonorgestrel (MIRENA) 20 MCG/24HR IUD 1 Device by Intrauterine route 12/24/2015 Active Active Problems Problem Noted Date Diagnosed Date KRISTEN I (cervical intraepithelial neoplasia I) 10/2023 Iron deficiency anemia 07/17/2023 Overview: Microcytic, Hemoglobin 11.6, MCV 78 05/2006 Hemoglobin 10.3, MCV 76 09/2006 on PPI without reflux symptoms currently STFR/ferritin 9.3/3 --> 13.26 09/2006 Celiac panel negative and peripheral smear consistent with with KEVIN 09/2006. Fe supplement started 09/2006 Likely due to menstruation. Posttraumatic stress disorder 07/17/2023 Chronic pain of both knees 02/28/2023 Major depressive disorder, recurrent, moderate 1 04/30/2022 Other specified noninflammatory disorders of vag shilpi 01/05/2020 Bipolar disorder, current episode depressed, mil d 08/21/2019 Generalized anxiety disorder 08/21/2019 Insulin controlled gestation al diabetes mellitus (GDM) in third trimester 09/16/2015 Morbid obesity 03/21/2012 Social History Tobacco Use Types Packs/Day Years Used Date Smoking Tobacco: Former Smokeless Tobacco: Never Tobacco Cessation:Counseling Given: Not Answered Adolescent Education Answer Date Record ed Getting School Help Needed Not on file 07/16 Sex and Gender Information Value Date Recorded Sex Assigned at Not on file Gender Identity Not on file Sexual Orientation Not on file Last Filed Vital Signs [...] Mass Index 49.41 07/17/2023 1:40 PM CDT Plan of Treatment Not on file Procedures Procedure Name Priority Date/Time Associated Diagnosis Comments INFLUENZA A/B ANTIGEN Routine 07/17/2023 1:46 PM CDT Sore throat STREPTOCOCCUS A RAPID SCREEN W REFELX TO PCR Routine 07/17/2023 1:46 PM CDT Sore throat BASIC METABOLIC PANEL STAT 06/03/2019 4:09 PM CAR SHIFTER from Last 3 Months or Most Recently Relevant to Health Maintenance Results * (ABNORMAL) Streptococcus A Rapid Screen w/Reflex to PCR - Clinic Collect (07/17/2023 1:46 PM CDT) Pathologist [facility] A Strep antigen Positive(A ) Negative 07/17/2023 2:05 PM CDT LABORATORY Comment:This is a corrected result. Previous result was Negative on 07/17/2023 at 2:04 PM CDT Swab STRUCTURE OF ANTERIOR PORTION OF NECK / Unknown Non-blood Collection / Unknown 07/17/2023 1:46 PM CDT 07/17/2023 1:54 PM CDT Rae BENSON-C LAB - MICRO GENERAL ORDERABLES LABORATORY [facility] [address] [facility] (no room number, 1st floor of [facility]) [place] [address], [facility] [phone] * Influenza A & B Antigen - Clinic Collect (07/17/2023 1:46 PM CDT) Pathologist [facility] Influenza A antigen Negative Negative 07/17/2023 2:16 PM CDT LABORATORY Influenza B antigen Negative Negative 07/17/2023 2:16 PM CDT LABORATORY Swab NASAL STRUCTURE / Unknown Non-blood Collection / Unknown 07/17/2023 1:46 PM CDT 07/17/2023 1:54 PM CDT Narrative LABORATORY - 07/17/2023 2:16 PM CDT Test results must be correlated with clinical data. If necessary, results should be confirmed by a molecular assay or viral culture. Rae BENSON-C LAB - MICRO GENERAL ORDERABLES LABORATORY [facility] [address] [facility] (no room number, [facility]st floor of [facility] [place] [address], [facility] [phone] * (ABNORMAL) Basic metabolic panel (06/03/2019 4:09 PM CAR SHIFTER) [facility] Sodium 139 133 - 144 mmol/L 06/03/2019 4:24 PM CAR SHIFTER [facility] Potassium 3.8 3.4 - 5.3 mmol/L 06/03/2019 4:24 PM [facility] Chloride 108 94 - 109 mmol/L 06/03/2019 4:24 PM [facility] Carbon Dioxide 29 20 - 32 mmol/L 06/03/2019 4:30 PM [facility] Anion Gap 2(L) 3 - 14 mmol/L 06/03/2019 4:30 PM [facility] Glucose 75 70 - 99 mg/dL 06/03/2019 4:30 PM [facility] Urea Nitrogen 13 7 - 30 mg/dL 06/03/2019 4:30 PM [facility] Creatinine 0.70 0.52 - 1.04 mg/dL 06/03/2019 4:30 PM [facility] GFR Estimate >90 >60 mL/min/{1. 73_m2} 06/03/2019 4:30 PM [facility] Comment: Non GFR Calc Starting 03/28/2018, serum creatinine based estimated GFR (eGFR) will be calculated using the Chronic Kidney Disease Epidemiology Collaboration (CKD-EPI) equation. GFR Estimate If Black >90 >60 mL/min/{1. 73_m2} 06/03/2019 4:30 PM [facility] Comment: GFR Calc Starting 03/28/2018, serum creatinine based estimated GFR (eGFR) will be calculated using the Chronic Kidney Disease Epidemiology Collaboration (CKD-EPI) equation. Calcium 9.3 8.5 - 10.1 mg/dL 06/03/2019 4:30 PM [facility] Blood specimen (specimen) 06/03/2019 4:09 PM CAR SHIFTER 06/03/2019 4:13 PM [facility] Tj Dempsey MD LAB - BLOOD ORDERABL ES [facility] [address] [place] [id number] [phone] from Last 3 Months or Most Recently Relevant to Health Maintenance Care Teams Nuclear Equipment Sales Engineer Relationship Specialty [place] [address] [place] [address] PCP - General Family Practice 05/29/19 Lou Hare MD [address] [id number] Referring Physician Osteopathy 06/11/19 Jean Meade MD [address] [id number] Ophthalmology 06/11/19
--- OUTSIDE RECORDS SUMMARY | 2023-08-28 22:27 | XMS_ITS | Clinical Summary ---
Author Name Unknown Organization [place] Address [address] [place] [address] Care Team Providers Care Instant Print Operator Name Role Phone Sofiya Higgins MD Primary Care Provider [phone] Lou Hare MD Unavailable [phone] Jean Meade MD Unavailable [phone] Allergies No known active allergies Medications Medication [...] in third trimester 09/16/2015 Morbid obesity 03/21/2012 Encounters Date Type Department Care Team Description 07/17/2023 1:30 PM CDT Office Visit [facility] [place] [address] [place] [address] Rae Bee PA-C Streptococcal pharyngitis (Primary Dx); Sore throat 07/17/2023 Travel from Last 3 Months Social History Tobacco Use Types Packs/Day Years [...] 07/17/2023 1:40 PM CDT Plan of Treatment Health Maintenance Due Date Last Done Comments ADVANCE CARE PLANNING 1987 ANNUAL REVIEW OF HM ORDERS 1987 YEARLY PREVENTIVE VISIT 1987 HIV SCREENING 09/03/2002 HEPATITIS C SCREENING 09/03/2005 PAP 05/07/2018 05/07/2015 GLUCOSE 06/03/2022 06/03/2019 DTAP/TDAP/TD IMMUNIZATION (6 - Td or Tdap) 09/15/2025 09/16/2015, 11/18/2009, 04/11/2004, Additional history exists HEPATITIS B IMMUNIZATION Completed 996, 04/18/1995, 10/20/1994 HPV IMMUNIZATION Completed 04/29/2009, , 07/18/2008 COVID-19 Vaccine Completed 02/28/2023, 01/2022, 03/28/2021, Additional history exists INFLUENZA VACCINE Completed 02/28/2023, , 12/19/2019, Additional history exists Pneumococcal Vaccine: Pediatrics (0 to 5 Years) and At-Risk Patients (6 to 64 Years) Aged Out 02/28/2023 No longer eligible based on patient's age to complete this topic IPV IMMUNIZATION Aged Out No longer e ligible based on patient's age to complete this topic MENINGITIS IMMUNIZATION Aged Out No l onger eligible based on patient's age to complete this topic RSV MONOCLONAL ANTIBODY Aged Out No l onger eligible based on patient's age to complete this topic Procedures Procedure Name Priority Date/Time Associated Diagnosis Comments INFLUENZA A/B ANTIGEN Routine 07/17/2023 1:46 PM CDT Sore throat STREPTOCOCCUS A RAPID SCREEN W REFELX TO PCR Routine 07/17/2023 1:46 PM CDT Sore throat BASIC METABOLIC PANEL STAT 06/03/2019 4:09 PM DATA ENTRY TECHNICIAN from Last 3 Months or Most Recently Relevant to Health Maintenance Results * (ABNORMAL) Streptococcus A Rapid Screen w/Reflex to PCR - Clinic Collect (07/17/2023 1:46 PM CDT) Group A Strep antigen Positive(A ) Negative 07/17/2023 2:05 PM CDT [facility] Comment:This is a corrected result. Previous result was Negative on 07/17/2023 at 2:04 PM CDT Swab STRUCTURE OF ANTERIOR PORTION OF NECK / Unknown Non-blood Collection / Unknown 07/17/2023 1:46 PM CDT 07/17/2023 1:54 PM CDT Rae Bee PA-C LAB - MICRO GENERAL ORDERABLES LABORATORY [facility] [address] [facility] (no room number, 1st floor of clinic) [place] [address], [facility] [phone] * Influenza A & B Antigen - [...] a molecular assay or viral culture. Rae Bee PA-C LAB - MICRO GENERAL ORDERABLES LABORATORY [facility] [place] [facility] [address] [facility] (no room number, 1st floor of [facility]) [place] [address] [phone] * (ABNORMAL) Basic metabolic panel (06/03/2019 4:09 PM DATA ENTRY TECHNICIAN) Pathologist [facility] Sodium 139 133 - 144 mmol/L 06/03/2019 4:24 PM [facility] Potassium 3.8 3.4 - 5.3 mmol/L 06/03/2019 4:24 PM [facility] Chloride 108 94 - 109 mmol/L 06/03/2019 4:24 PM [facility] Carbon Dioxide 29 20 - 32 mmol/L 06/03/2019 4:30 PM [facility] Anion Gap 2(L) 3 - 14 mmol/L 06/03/2019 4:30 PM [facility] Glucose 75 70 - 99 mg/dL 06/03/2019 4:30 PM [facility] Urea Nitrogen 13 7 - 30 mg/dL 06/03/2019 4:30 PM [facility] Creatinine 0.70 0.52 - 1.04 mg/dL 06/03/2019 4:30 PM [facility] GFR Estimate >90 >60 mL/min/{1. 73_m2} 06/03/2019 4:30 PM [facility] Comment: Non GFR Calc Starting 03/28/2018, serum creatinine based estimated GFR (eGFR) will be calculated using the Chronic Kidney Disease Epidemiology Collaboration (CKD-EPI) equation. GFR Estimate If Black >90 >60 mL/min/{1. 73_m2} 06/03/2019 4:30 PM [facility] Comment: GFR Calc Starting 03/28/2018, serum creatinine based estimated GFR (eGFR) will be calculated using the Chronic Kidney Disease Epidemiology Collaboration (CKD-EPI) equation. Calcium 9.3 8.5 - 10.1 mg/dL 06/03/2019 4:30 PM [facility] Blood specimen (specimen) 06/03/2019 4:09 PM DATA ENTRY TECHNICIAN 06/03/2019 4:13 PM DATA ENTRY TECHNICIAN Tj Dempsey MD LAB - BLOOD ORDERABL ES [facility] [address] [place] [id number] [phone] from Last 3 Months or Most Recently Relevant to Health Maintenance Care Teams Instant Print Operator Relationship Specialty [place] [address] [place] [address] PCP - General Family Practice 05/29/19 Lou Hare MD [facility] [address] [place], [place] [id number] Referring Physician Osteopathy 06/11/19 [place] [address] Ophthalmology 06/11/19
--- OUTSIDE RECORDS SUMMARY | 2023-08-28 22:27 | XMS_ITS | Encounter Summary ---
Author Name Unknown Organization [place] Address [address] [place] [address] Care Team Providers Care Maintenance Construction Helper Name Role Phone Sofiya Higgins MD Primary Care Provider [phone] Lou Hare MD Unavailable Jean Meade MD Unavailable [phone] Encounter Details Date Type Department Care Team (Latest Contact Info) Description 07/17/2023 Travel Social History Tobacco Use Types Packs/Day Years Used Date Smoking Tobacco: Former Smokeless Tobacco: Never Adolescent Education Answer Date Record ed Getting School Help Needed Not on file 07/16 Sex and Gender Information Value Date Recorded Sex Assigned at Not on file Gender Identity Not on file Sexual Orientation Not on file documented as of this encounter Plan of Treatment Not on file documented as of this encounter Visit Diagnoses Not on filedocumented in this encounter Care Teams Maintenance Construction Helper Relationship Specialty [place] [address] [place] [address] PCP - General Family Practice 05/29/19 Lou Hare MD [address] [address] Referring Physician Osteopathy 06/11/19 Jean Meade MD [address] [address] Ophthalmology 06/11/19 documented as of this encounter
[2023-08-28 22:28] LABS: Clue Cells No Clue Cells Seen (None Seen); Trichomonas No Trichomonas Seen (None Seen); Yeast No Yeast Seen (None Seen)
[2023-08-28 23:34] VITALS: BP 118/74; PULSE 89; RESP 16; TEMP 36.6; O2SAT 99
[2023-08-28 23:35] VITALS: BP 118/74; PULSE 89; RESP 16; TEMP 36.6
== END 2023-08-28 23:35 | disposition home or self-care (01) ==
PROVIDERS: Emergency Provider Family Medicine; PCP Family Medicine
DX: N76.0 Acute vaginitis (principal)
CPT/HCPCS: 81001; 87086; 87210; 99283; 99284

== ENCOUNTER 2024-03-03 19:52 | Emergency (ER) | payer BC, MEDICAID, SELFPAY ==
[2024-03-03 20:06] VITALS: BP 134/81; PULSE 76; RESP 18; TEMP 36.8; O2SAT 97; BMI 48.8
--- NOTE | 2024-03-03 20:09 | CRLHL7_ITS ---
For Patients: As a result of the Century Cures Act, medical imaging exams and procedure reports are released immediately into your electronic medical record. You may view this report before your referring provider. If you have questions, please contact your health care provider. Indication: Right foot pain Technique: Right foot 3 views. Comparison: None. Findings/impression: No acute fracture or dislocation. Joint spaces are preserved. Well corticated ossicle in the dorsal foot at the level of the metatarsals, which may represent an accessory ossicle or be related to prior trauma. Plantar calcaneal enthesophyte and small Achilles insertional enthesophyte. Mild soft tissue swelling of the foot. Dictated by Maria Alejandra Iraheta MD @ 03/03/2024 8:56:06 PM (Electronically Signed)
--- NOTE | 2024-03-03 20:13 | ED.GENADULT ---
HPI - General Adult General Chief complaint: Extremity Pain/Injury, Lower Stated complaint: R foot injury Time Seen by Provider: 03/03/24 20:13 History of Present Illness HPI narrative: Right foot injury at wedding last week. Bump noted out outside. Took advil. 38-year-old woman presenting to the emergency department with complaint of right foot pain. She has noted a bump here now. She has been treating with ibuprofen. Sounds like may have sustained an inversion injury of the foot and ankle while dancing at a wedding approximately a week ago. Has continued to ambulate but having to adjust how she walks due to pain. No other injuries were noted at that time. Related Data Home Medications ?Medication ?Instructions ?Recorded ?Confirmed No Known Home Medications 03/13/24 03/13/24 Allergies Allergy/AdvReac Type Severity Reaction Status Date / Time No Known Drug Allergies Allergy Verified 03/13/24 09:35 Review of Systems Status of ROS: Reports: 6 or more systems reviewed and unremarkable except as noted in History and below [facility] Medical History Anxiety ?F41.9 - Anxiety disorder, unspecified (ICD-10) UTI (urinary tract infection) ?N39.0 - Urinary tract infection, site not specified (ICD-10) Tension-type headache, unspecified, intractable ?G44.201 - Tension-type headache, unspecified, intractable (ICD-10) Pain in left knee ?M25.562 - Pain in left knee (ICD-10) Morbid obesity ?E66.01 - Morbid (severe) obesity due to excess calories (ICD-10) Generalized anxiety disorder ?F41.1 - Generalized anxiety disorder (ICD-10) Dyslexia ?R48.0 - Dyslexia and alexia (ICD-10) Depressive disorder ?F32.A - Depression, unspecified (ICD-10) KRISTEN I (cervical intraepithelial neoplasia I) ?N87.0 - Mild cervical dysplasia (ICD-10) Bipolar disorder, current episode depressed, mild ?F31.31 - Bipolar disorder, current episode depressed, mild (ICD-10) Acute vaginitis ?N76.0 - Acute vaginitis (ICD-10) 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, unspecified eye (ICD-10) Surgical History History of tympanostomy ?Z98.890 - Other specified postprocedural states (ICD-10) History of wisdom tooth extraction ?K08.409 - Partial loss of teeth, unspecified cause, unspecified class (ICD-10) H/O laparoscopy ?Z98.890 - Other specified postprocedural states (ICD-10) Hx of breast reduction, elective ?Z98.890 - Other specified postprocedural states (ICD-10) Social History Smoking Status: Former smoker Do you use any of these nicotine containing products: None Second hand tobacco smoke exposure: No How often do you have a drink containing alcohol: 2-4 times a month How many standard drinks containing alcohol do you have on a typical day: 1 or 2 How often do you have six or more drinks on one occasion: Never AUDIT-C Alcohol total score: 2 Non-prescribed substance use: denies use service: No Exam Narrative: Exam Narrative: Pleasant. NAD. Breathing easily. Examination of the right foot/leg does not have tenderness or swelling about the malleoli. There is prominence at the base of the 5th metatarsal tenderness here as well. No navicular pain. Plantar bruising. Well-perfused peripherally. Const: Vital Signs, click to edit/add: Vital Signs - 24 hr 03/03/24 20:06 Temperature 98.2 F Pulse Rate [Pulse Oximeter] 76 Respiratory Rate 18 Blood Pressure [Ri ght Upper Arm] 134/81 Pulse Oximetry 97 Oxygen Delivery Me thod Room Air Documenting provider has reviewed patient's vital signs: yes Course Vital Signs Vital signs: Initial Vital Signs Temperature 98.2 F 03/03/24 20:06 Temperature Source Temporal Artery Scan 03/03/24 20:06 Pulse Rate 76 03/03/24 20:06 Respiratory Rate 18 03/03/24 20:06 Blood Pressure 134/81 03/03/24 20:06 Blood Pressure Mean 98 03/03/24 20:06 Blood Pressure Position Sitting 03/03/24 20:06 Pulse Oximetry 97 03/03/24 20:06 Oxygen Delivery Method Room Air 03/03/24 20:06 Vital Signs Temperature 98.2 F 03/03/24 20:06 Pulse Rate 76 03/03/24 20:06 Respiratory Rate 18 03/03/24 20:06 Blood Pressure 134/81 03/03/24 20:06 Pulse Oximetry 97 03/03/24 20:06 Oxygen Delivery Method Room Air 03/03/24 20:06 Temperature 98.2 F 03/03/24 22:20 Pulse Rate 71 03/03/24 22:20 Respiratory Rate 18 03/03/24 22:20 Blood Pressure 122/70 03/03/24 22:20 Pulse Oximetry 97 03/03/24 21:22 Oxygen Delivery Method Room Air 03/03/24 21:22 Medical Decision Making MDM Narrative Medical decision making narrative: Will need imaging of her foot at this point. I would have concerned about avulsion fracture off of the 5th metatarsal perhaps. Could be other fracture in this area. Three-view of the right foot reviewed by me shows fragment of bone, rather corticated, about 1.5 cm and adjacent to the Cuboid. I do not think this is an avulsion fracture off of the base of the 5th metatarsal but more from mid foot. Will likely need cam boot. Called Orthopedics to discuss this case in arrange follow-up. They are in agreement with plan for cam boot and will look for in outpatient follow-up. Placed in cam boot for departure. Medical Records Medical records reviewed: Yes I reviewed the patient's medical records Discharge Plan Discharge Clinical Impression: Foot fracture, right Patient Disposition: Home, Self-Care Condition: Stable Additional Instructions: Discussed your case with orthopedics. They would like to see you in clinic next week. Wear this cam boot until this time with further recommendations pending on appointment. Please call to Orthopedics on Tuesday morning at phone number [phone]. Ibuprofen, acetaminophen, elevation for comfort. Can remove the Cam boot to apply ice packs if you like. Can walk on this unless just too uncomfortable, then can utilize crutches. Prescriptions: No Action No Known Home Medications Follow Up/Referrals: Sofiya Higgins MD [Primary Care Provider] - Stand Alone Forms: [employer] Preference Info Instructions
--- OUTSIDE RECORDS SUMMARY | 2024-03-03 21:18 | XMS_ITS | Referral Summary ---
Author Organization [facility] Address [address] [place] [address] Care Team Providers Care Aviation Warfare Systems Operator Name Role Phone Sofiya Higgins MD Primary Care Provider [phone] Lou Hare MD Unavailable [phone] Jean Meade MD Unavailable [phone] Allergies No known active allergies Medications acetaminophen (TYLENOL) 325 MG tablet Take 650 mg by mouth Active levonorgestrel (MIRENA) 20 MCG/24HR IUD 1 Device by Intrauterine route 6 Active Active Problems Problem Noted Date Diagnosed Date KRISTEN I (cervical intraepithelial neoplasia I) 10/2023 Iron deficiency anemia 07/17/2023 Overview (07/17/2023): Microcytic, Hemoglobin 11.6, MCV 78 05/2006 Hemoglobin [...] School Help Needed Not on file 07/16 Comments No Sex and Gender Information Value Date Recorded Sex Assigned at Not on file Legal Sex Female 3:15 AM MINE SAFETY DIRECTOR Gender Identity Not on file Sexual Orientation Not on file Last Filed Vital Signs Vital Sign Reading Time Taken Comments Blood Pressure 132/84 07/17/2023 1:40 PM CDT Pulse 82 07/17/2023 1:40 PM CDT Temperature 36.9 C (98.4 F) 07/17/2023 1:40 PM CDT Respiratory Rate 18 07/17/2023 1:40 PM CDT Oxygen Saturation 98% 07/17/2023 1:40 PM CDT Inhaled Oxygen Concentration - - Weight 114.8 kg (253 lb) 07/17/2023 1:40 PM CDT Height 152.4 cm (5') 07/17/2023 1:40 PM CDT Body Mass Index 49.41 07/17/2023 1:40 PM CDT Plan of Treatment Not on file Procedures Procedure Name Priority Date/Time Associated Diagnosis Comments BASIC METABOLIC PANEL STAT 06/03/2019 4:09 PM MINE SAFETY DIRECTOR from Last 3 Months or Most Recently Relevant to Health Maintenance Results * (ABNORMAL) Basic metabolic panel (06/03/2019 4:09 PM MINE SAFETY DIRECTOR) Sodium 139 133 - 144 mmol/L 06/03/2019 4:24 PM [facility] Potassium 3.8 3.4 - 5.3 mmol/L 06/03/2019 4:24 PM [facility] Chloride 108 94 - 109 mmol/L 06/03/2019 4:24 PM [facility] Carbon Dioxide 29 20 - 32 mmol/L 06/03/2019 4:30 PM [facility] Anion Gap 2(L) 3 - 14 mmol/L 06/03/2019 4:30 PM [facility] Glucose 75 70 - 99 mg/dL 06/03/2019 4:30 PM [facility] Urea Nitrogen 13 7 - 30 mg/dL 06/03/2019 4:30 PM MINE SAFETY DIRECTOR [facility] Creatinine 0.70 0.52 - 1.04 mg/dL 06/03/2019 4:30 PM [facility] GFR Estimate >90 >60 mL/min/{1. 73_m2} 06/03/2019 4:30 PM [facility] Comment: Non GFR Calc Starting 03/28/2018, serum creatinine based estimated GFR (eGFR) will be calculated using the Chronic Kidney Disease Epidemiology Collaboration (CKD-EPI) equation. GFR Estimate If Black >90 >60 mL/min/{1. 73_m2} 06/03/2019 4:30 PM MINE SAFETY DIRECTOR [facility] Comment: GFR Calc Starting 03/28/2018, serum creatinine based estimated GFR (eGFR) will be calculated using the Chronic Kidney Disease Epidemiology Collaboration (CKD-EPI) equation. Calcium 9.3 8.5 - 10.1 mg/dL 06/03/2019 4:30 PM [facility] Blood specimen (specimen) 06/03/2019 4:09 PM MINE SAFETY DIRECTOR 06/03/2019 4:13 PM MINE SAFETY DIRECTOR Tj Dempsey MD LAB - BLOOD ORDERABLES Final Result [facility] [address] [place] [address], [facility] [phone] from Last 3 Months or Most Recently Relevant to Health Maintenance Insurance / [place] [address] / [place] [address] Care Teams Aviation Warfare Systems Operator Relationship Specialty Start [place] [address] [place] [address] PCP - General Family Practice 05/29/19 Lou Hare MD [address] [address] Referring Physician Osteopathy 06/11/19 Jean Meade MD [address] [address] Ophthalmology 06/11/19
--- OUTSIDE RECORDS SUMMARY | 2024-03-03 21:18 | XMS_ITS | Clinical Summary ---
Author Organization [facility] Address [place], [place] [address] Care Team Providers Care Cell Coverer Name Role Phone Sofiya Higgins MD Primary Care Provider [phone] Allergies No known active allergies Medications Medication Sig Dispensed Refills Start Date End Date Status FLUoxetine (PROZAC) 10 mg capsuleIndications :Major depressive disorder, recurrent, moderate (HC),LYNDA (generalized anxiety disorder) Take 1 Capsule (10 mg) by mouth once daily. 30 Capsule 02/28/2023 Active Additional Information Patient not taking.Reported on 08/07/2023 Hospital, Clinic, or Other Facility Administered Medication [...] of other normal , first trimester 05/07/2015 Overview (11/05/2015): IDDM - gestational. BPP's Excessive weight gain 06/06/2014 Morbid obesity 03/21/2012 Active labor 07/27/2011 RLQ abdominal pain 01/22/2009 Overview (01/22/2009): Laparoscopic evaluation: ovarian cyst removed 01/2009. 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 Fe supplement started 09/2006 Likely due to menstruation. KRISTEN I (cervical intraepithelial neoplasia I) Resolved Problems Problem Noted Date Diagnosed Date Resolved Date Bipolar disorder, unspecified 02/15/2011 Overview (09/12/2006): Patient follows with psychiatry. diagnosed 2005, patient feels better with lithium. Anxiety state, unspecified 1 04/17/2010 Immunizations Name Administration Dates Next Due COVID-19 VACCINE SPIKEVAX (M ODERNA 50MCG/0.5ML) 12YO+ PFS 02/28/2023 COVID-19 vaccine (Sribu-Bio NTech 30mcg/0.3mL) 12YO+ BIVALENT PF, MDV 01/18/2022 [...] Used Date Smoking Tobacco: Former Cigarettes 0.1 18.9 S tarted: 2005 Smokeless Tobacco: Never Tobacco Cessation:Counseling Given: Not Answered Comments:one cigarette qod x 2 years, 09/2006 Alcohol Use Standard Drinks/Week Comments Yes 1 (1 standard drink = 0.6 oz pur e alcohol) occ PHQ-2 Answer Date Recorded PHQ-2 TOTAL SCORE 4 02/28/2023 Social Connections Answer Date Recorded Frequency of Communication with Friends and Fami ly Not on file 12/27/2023 Financial Resource Strain Answer Date R ecorded [...] Outcome GA Total Labor Labor/2nd/3rd Weight Sex Type Anes PTL Melva A1 A5 Name Clin 2011 Term 39w 1d 2.63 kg (5 lb 12.8 oz) F Vag Livin g 9 9 DARIUSE R,BG Delivery Location:[facility] 2014 AB 6w0 d 2014 AB 6w0 d 2014 AB 6w0 d 2015 Term 39w 1d 3.66 kg (8 lb 1 oz) M Vag Epidur al N Livin g 7 8 DARIUSE R,BB KATELY N Complications:None Delivery Location:[facility] Last Filed Vital Signs Vital Sign Reading Time Taken Comments Blood Pressure 140/63 08/07/2023 8:10 AM CDT Pulse 84 08/07/2023 8:10 AM CDT Temperature 37 C (98.6 F) 08/07/2023 8:10 AM CDT Respiratory Rate 16 08/07/2023 8:10 AM CDT Oxygen Saturation 99% 08/07/2023 8:10 AM CDT Inhaled Oxygen Concentration - - Weight 119.7 kg (264 lb) 08/07/2023 8:09 AM CDT Height 152.4 cm (5') 08/07/2023 8:09 AM CDT Body Mass Index 51.56 08/07/2023 8:09 AM CDT Plan of Treatment Upcoming Encounters Date Type Department Care Team (Late st Contact Info) Description 03/12/2024 10:40 AM GRINDING MACHINE OPERATOR PORTABLE Office Visit [facility] [address] [place] [address] [place] [address] [address] [place], [place] [id number] Health Maintenance Due Date Last Done Comments Hepatitis C screening for ag e 18-79 09/03/2005 COVID-19 vaccine series (2023- season) 2023 02/28/2023, 01/18/2022, 03/28/2021, Additional history exists Influenza for age 9-49 12/11/2023 , 01/18/2022, 12/19/2019, Additional history exists Depression screening for age 12+ 03/08/2024 03/08/2023, 02/28/2023, 02/06/2016, Additional history exists BMI (ht and wt on same day) for age 18+ 08/06/2024 08/07/2023, 02/28/2023, 12/25/2022, Additional history exists Pap test for age 21-65 10/29/2024 0 (Verified in Care Everywhere or Patient Record), 05/07/2015, 07/18/2008 Tetanus booster 09/15/2025 09/16/2015, 11/09, 04/11/2004, Additional history exists HIV for age 15-65 Completed 05/07/2015 Tdap Completed 09/16/2015, 11/18/2009 Pneumococcal series for age 6-64 Completed 02/29/20 23 Procedures Procedure Name Priority Date/Time Associated Diagnosis Comments ANTI HIV 1/2 Routine 05/07/2015 2:14 PM GRINDING MACHINE OPERATOR PORTABLE Encounter for supervision of other normal , first trimester PICKLE MAKER THIN PREP PAP SCREEN IMAGED Routine 05/07/2015 2:14 PM GRINDING MACHINE OPERATOR PORTABLE Encounter for supervision of other normal , first trimester from Last 3 Months or Most Recently Relevant to Health Maintenance Results * PICKLE MAKER THIN PREP PAP SCREEN IMAGED (05/07/2015 2:14 PM GRINDING MACHINE OPERATOR PORTABLE) PICKLE MAKER CYTOLOGY See Anatomic Pathology case 05/12/2015 3:00 PM GRINDING MACHINE OPERATOR PORTABLE [facility] Specimen (specimen) (Cervical) Non-Blood / Unknown 05/07/2015 2:14 PM GRINDING MACHINE OPERATOR PORTABLE 05/07/2015 2:14 PM GRINDING MACHINE OPERATOR PORTABLE Sultana Guthrie NP PATHOLOGY/CYTOLO GY [facility] [address] [place] [address], * ANTI HIV 1/2 (05/07/2015 2:14 PM GRINDING MACHINE OPERATOR PORTABLE) HIV-1/HIV-2 ANTIBODY Non-Reacti ve Non-Reacti ve 05/07/2015 6:04 PM GRINDING MACHINE OPERATOR PORTABLE [facility] Blood specimen (specimen) BLOOD SPECIMEN / Unknown Venipuncture / Unknown 05/07/2015 2:14 PM GRINDING MACHINE OPERATOR PORTABLE 05/07/2015 2:31 PM GRINDING MACHINE OPERATOR PORTABLE Narrative [facility] - 05/07/2015 6:04 PM GRINDING MACHINE OPERATOR PORTABLE HIV-1 p24 and HIV-1/HIV-2 Ab not detected Sultana Guthrie NP SEND OUTS Performing Organization Address City/[facility]/ZIP Co de Phone Number [facility] [address] [place] [address], from Last 3 Months or Most Recently [...] 1:45 PM 07/27/2011 3:24 PM Care Teams Cell Coverer Relationship Specialty Start [place] [address] [place] [address] PCP - General Family Practice 11/10/20
--- OUTSIDE RECORDS SUMMARY | 2024-03-03 21:18 | XMS_ITS | Clinical Summary ---
Author Organization [facility] Address [address] [place] [address] Care Team Providers Care Whiting Machine Operator Name Role Phone Sofiya Higgins MD Primary Care Provider [phone] Lou Hare MD Unavailable [phone] Jaen Meade MD Unavailable [phone] Allergies No known active allergies Medications [...] on file Legal Sex Female 3:15 AM CONCRETE WORKER Gender Identity Not on file Sexual Orientation [...] 09/03/2005 PAP 05/07/2018 05/07/2015 GLUCOSE 06/03/2022 06/03/2019 COVID-19 Vaccine ( season) 2023 02/28/2023, 01/18/2022, 03/28/2021, Additional history exists INFLUENZA VACCINE (#1) 2023 , 01/18/2022, 12/19/2019, Additional history exists DTAP/TDAP/TD IMMUNIZATION (6 - Td or Tdap) 09/15/2025 09/16/2015, 11/18/2009, 04/11/2004, Additional history exists RSV VACCINE (1 - 1-dose 75+ series) 09/03/2062 HEPATITIS B IMMUNIZATION Completed 996, 04/18/1995, 10/20/1994 HPV IMMUNIZATION Completed 04/29/2009, , 07/18/2008 Pneumococcal Vaccine: Pediatrics (0 to 5 Years) [...] BASIC METABOLIC PANEL STAT 06/03/2019 4:09 PM CONCRETE WORKER from Last 3 Months or Most Recently Relevant to Health Maintenance Results * (ABNORMAL) Basic metabolic panel (06/03/2019 4:09 PM CONCRETE WORKER) Sodium 139 133 - 144 mmol/L 06/03/2019 4:24 PM [facility] Potassium 3.8 3.4 - 5.3 mmol/L 06/03/2019 4:24 PM [facility] Chloride 108 94 - 109 mmol/L 06/03/2019 4:24 PM [facility] Carbon Dioxide 29 20 - 32 mmol/L 06/03/2019 4:30 PM [facility] Anion Gap 2(L) 3 - 14 mmol/L 06/03/2019 4:30 PM [facility] Glucose 75 70 - 99 mg/dL 06/03/2019 4:30 PM [facility] Urea Nitrogen 13 7 - 30 mg/dL 06/03/2019 4:30 PM [facility] Creatinine 0.70 0.52 - 1.04 mg/dL 06/03/2019 4:30 PM [facility] GFR Estimate >90 >60 mL/min/{1. 73_m2} 06/03/2019 4:30 PM [facility] Comment: Non GFR Calc Starting 03/28/2018, serum creatinine based estimated GFR (eGFR) will be calculated using the Chronic Kidney Disease Epidemiology Collaboration (CKD-EPI) equation. GFR Estimate If Black >90 >60 mL/min/{1. 73_m2} 06/03/2019 4:30 PM [facility] Comment: GFR Calc Starting 03/28/2018, serum creatinine based estimated GFR (eGFR) will be calculated using the Chronic Kidney Disease Epidemiology Collaboration (CKD-EPI) equation. Calcium 9.3 8.5 - 10.1 mg/dL 06/03/2019 4:30 PM CONCRETE WORKER [facility] Blood specimen (specimen) 06/03/2019 4:09 PM CONCRETE WORKER 06/03/2019 4:13 PM CONCRETE WORKER Tj Dempsey MD LAB - BLOOD ORDERABLES Final Result [facility] [address] [place] [id number] [phone] from Last 3 Months or Most Recently Relevant to Health Maintenance Insurance / [place] [address] / [place] [address] Care Teams Whiting Machine Operator Relationship Specialty [place] [address] [place] [address] PCP - General Family Practice 05/29/19 Lou Hare MD [address] [address] Referring Physician Osteopathy 06/11/19 Jean Meade MD [address] [address] Ophthalmology 06/11/19
[2024-03-03 21:22] VITALS: BP 122/70; PULSE 71; RESP 18; TEMP 36.8; O2SAT 97
[2024-03-03 22:20] VITALS: BP 122/70; PULSE 71; RESP 18; TEMP 36.8
== END 2024-03-03 22:20 | disposition home or self-care (01) ==
PROVIDERS: Emergency Provider Family Medicine; PCP Family Medicine
DX: S92.351A Displaced fracture of fifth metatarsal bone, right foot, initial encounter for closed fracture (principal); X58.XXXA Exposure to other specified factors, initial encounter
CPT/HCPCS: 73630; 99283; 99284